=== PATIENT | male | born 1960 | race Caucasian/White ===

== ENCOUNTER 2025-02-20 16:39 | Emergency (ER) | payer OTHER, SELFPAY ==
[2025-02-20] VITALS (7 sets, daily range): BP systolic 160–190; BP diastolic 90–96; PULSE 75–82; RESP 16–25; TEMP 37.3; O2SAT 94–97; BMI 35.9
--- OUTSIDE RECORDS SUMMARY | 2025-02-20 16:42 | XMS_ITS | Encounter Summary ---
Author Organization [facility] Address [address] [place] [address] Care Team Providers Care Founder Ceo & President Name Role Phone Walter Ibarra MD Primary Care Provider [phone] Walter Ibarra MD Unavailable + Walter Ibarra MD Unavailable + Walter Ibarra MD Unavailable + Walter Ibarra MD Unavailable + Walter Ibarra MD Unavailable Chetan Judge DO Primary Care Provider Chetan Judge DO Unavailable Encounter Details Date Type Department Care Team (Late st Contact Info) Description 05/13/2018 MyC Medical Advice [facility] [address] [place] [phone] Tavia Perez APRN EMPLOYMENT CASE MANAGER [address] [place] [address] [address] [place] [address] Social History Tobacco Use Types Packs/Day Years Used Date Smoking Tobacco: Former Cigarettes Q uit: 08/21/2004 Smokeless Tobacco: Former Comments:light smoker in the past Alcohol Use Standard Drinks/Week Comments No 0 (1 standard drink = 0.6 oz pur e alcohol) quit six years ago Sex and Gender Information Value Date Recorded Sex Assigned at Male 06/22/2021 1:40 PM CDT 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 Gender Identity Male 06/22/2021 1:40 PM CDT Sexual Orientation Not on file Occupation Industry Job Start Date Job End Date Not on file Not on file Not on file Not on file documented as of this encounter Plan of Treatment Not on file documented as of this encounter Visit Diagnoses Not on filedocumented in this encounter Additional Health Concerns Assessment Noted Time PHQ-9 Depression Total Score: 1 05/14/20 18 7:01 AM CDT documented as of this encounter Care Teams Founder Ceo & President Relationship Specialty Start Date End Date Walter Ibarra MD PCP - General Family Practice 09/05/15 06/06/23 [place] [address] [address] [address] PCP - Assigned PCP 12/28/14 12/23/18 [place] [address] [address] [address] PCP - General Family Medicine 06/07/23 [place] [address] [address] [address] Assigned PCP 12/28/14 06/18/20 [place] [address] [address] [address] Assigned PCP 07/30/21 06/28/23 [place] [address] [address] [address] Assigned PCP 06/19/20 06/17/21 [place] [address] [address] [address] Assigned PCP 06/18/21 07/29/21 [place] [address] [place] [address] Assigned PCP 06/29/23 documented as of this encounter
--- OUTSIDE RECORDS SUMMARY | 2025-02-20 16:42 | XMS_ITS | Encounter Summary ---
Author Organization [facility] Address [address] [place] [address] Care Team Providers Care Car Dumper Operator Name Role Phone Chetan Judge DO Primary Care Provider [phone] Chetan Judge DO Unavailable Reason for Visit * Reason Onset Date Comments Refill Request 12/23/2023 escitalopram (LE XAPRO) 20 MG tabletatenolol (TENORMIN) 25 MG tablettraZODone (DESYREL) 50 MG tablet Encounter Details Date Type Department Care Team (Late st Contact Info) Description 12/23/2023 MyC Medical Advice [facility] [id number] [place] [address] [place] [id number] [place] [address] Refill Request (escitalopram (LEXAPRO) 20 ... 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 More than three times a week 10/03/2022 How often do you get togethe r with friends or relatives? More than three times a week 10/03/2022 How often do you attend chur or jain services? More than 4 times per year 10/03/2022 Do you belong to any clubs o r organizations such as spiritism groups, unions, fraternal or athletic groups, or school groups? Yes 10/03/2022 Attends Club or Organization Meetings Not on nupur e 10/03/2022 Are you , , di vorced, , never , or living with a partner? 10/03/2022 AUDIT-C Answer Date Recorded Q1: How often do you have a drink containing alcohol? 4 or more times a week 10/03/2022 Q2: How many drinks containi ng alcohol do you have on a typical day when you are drinking? 3 or 4 Q3: How often do you have si x or more drinks on one occasion? Monthly 10/03/2022 Overall Financial Resource Strain (CARDIA) Answe r Date Recorded How hard is it for you to pa y for the very basics like food, housing, medical care, and heating? Not hard at all 10/03/2022 PHQ-2 Answer Date Recorded PHQ-2 Score 0 02/07/2023 [facility] - Occupational Stress Questionnaire Answer Date Recorded Do you feel stress - tense, restless, nervous, or anxious, or unable to sleep at night because your mind is troubled all the time - these days? Only a little 10/03/2022 Exercise Vital Sign Answer Date Recorde d On average, how many days pe r week do you engage in moderate to strenuous exercise (like a brisk walk)? 0 days 10/03/2022 On average, how many minutes do you engage in exercise at this level? 0 min 10/03/2022 Hunger Vital Sign Answer Date Recorded Within the past 12 months, y ou worried that your food would run out before you got the money to buy more. Never true 10/03/20 22 Within the past 12 months, t he food you bought just didn't last and you didn't have money to get more. Never true 10/03/2022 PRAPARE - Transportation Answer Date Re corded In the past 12 months, has l ack of transportation kept you from medical appointments or from getting medications? No 09/20 In the past 12 months, has l ack of transportation kept you from meetings, work, or from getting things needed for daily living? No 10/03/2022 Housing Stability Vital Sign Answer Christian e Recorded In the last 12 months, was t here a time when you were not able to pay the mortgage or rent on time? No 10/03/2022 In the last 12 months, how many places have you lived? 1 10/03/2022 In the last 12 months, was t here a time when you did not have a steady place to sleep or slept in a intermediate (including now)? 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 Gender Identity Male 06/22/2021 1:40 PM CDT Sexual Orientation Not on file Occupation Industry Job Start Date Job End Date Not on file Not on file Not on file Not on file documented as of this encounter Plan of Treatment Not on file documented as of this encounter Visit Diagnoses Diagnosis Palpitations Hypertension goal BP (blood pressure) < 140/90 Unspecified essential hypertension Panic attacks Panic disorder without agoraphobia Generalized anxiety disorder documented in this encounter Additional Health Concerns Assessment Noted Time PHQ-9 Depression Total Score: 1 06/14/20 20 8:56 AM CDT documented as of this encounter Care Teams Car Dumper Operator Relationship Specialty [place] [address] [place] [address] PCP - General Family Medicine 06/07/23 [place] [address] [place] [address] Assigned PCP 06/29/23 documented as of this encounter
--- OUTSIDE RECORDS SUMMARY | 2025-02-20 16:42 | XMS_ITS ---
Author Organization [facility] Address [address] [place] [phone] Care Team Providers Care Hand Bookbinder Name Role Phone Gareth Rob D.D.S., KIM Unavailable [phone] Encounters Encounter Location Date Provider Diagnosis [address], [place] [address] 07/28/2024 ROSALINE BLANC Plan Of Treatment No Information Progress Notes * Adrian DE JESUSDOB:1960 (64 yo M)Acc No.[id number]:07/28/2024 Patient: Adrian ACOSTA Provider: Corinna Blanc D.D.S., M.S. :1960 A ge:63 Y S ex:Male Date:07/28/2024 [facility] [facility] Subjective: * Chief Complaints: * * Medical History: Objective: * Vitals: Assessment: Plan: * Treatment: * Billing Information: * Visit Code: * Procedure Codes: * Electronic signature of ROSALINE BLANC DDS on 02/20/2025 at 04:41 PM CDT Sign off status: Pending * Provider: Corinna Blanc D.D.S., M.S. Date: 1 Generated for Melanie hernandez/Neha/eTransmitting on: 0 02/20/2025 04:41 PM CDT
--- OUTSIDE RECORDS SUMMARY | 2025-02-20 16:42 | XMS_ITS | Encounter Summary ---
Author Organization [facility] Address [address] [place] [address] Care Team Providers Care Color Checker Roving Or Yarn Name Role Phone Walter Ibarra MD Primary Care Provider [phone] Walter Ibarra MD Unavailable Chetan Judge DO Primary Care Provider [phone] Chetan Judge DO Unavailable [phone] Encounter Details Date Type Department Care Team (Late st Contact Info) Description 01/07/2023 MyC Medical Advice [facility] [address] [place] [address] [place] [address] [place] [address] [place] [address] Social History Tobacco Use Types Packs/Day Years Used Date Smoking Tobacco: Some Days Cigarettes Last attempted to quit: 08/21/2004 Smokeless Tobacco: Current Comments:Rarely Chewing 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 More than 4 times per year 10/03/2022 Do you belong to any clubs o r organizations such as moravian groups, unions, fraternal or athletic groups, or [...] PHQ-2 Answer Date Recorded PHQ-2 Score 0 12/26/2021 [facility] - Occupational Stress Questionnaire Answer Date Recorded [...] place to sleep or slept in a skilled nursing (including now)? 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 No / Unsure 01/07/2023 11:50 AM CDT documented as of this encounter Plan of Treatment Not on file documented as of this encounter Visit Diagnoses Not on filedocumented in this encounter Additional Health Concerns Assessment Noted Time PHQ-9 Depression Total Score: 1 06/14/20 20 8:56 AM CDT documented as of this encounter Care Teams Color Checker Roving Or Yarn Relationship Specialty Start Date End Date Walter Ibarra MD PCP - General Family Practice 09/05/15 06/06/23 [place] [address] [place] [address] PCP - General Family Medicine 06/07/23 [place] [address] [place] [address] Assigned PCP 07/30/21 06/28/23 [place] [address] [place] [address] Assigned PCP 06/29/23 documented as of this encounter
--- OUTSIDE RECORDS SUMMARY | 2025-02-20 16:42 | XMS_ITS | Encounter Summary ---
Author Organization [facility] Address [address] [place] [address]. [place] [address] Care Team Providers Care Pet Crematory Worker Name Role Phone Chetan Judge DO Primary Care Provider Chetan Judge DO Unavailable [phone] Encounter Details Date Type Department Care Team (Late st Contact Info) Description 07/10/2024 MyC Medical Advice [facility] [address] [place] [address] [place] Judge [place] [id number] [place] [address] Social History Tobacco Use Types Packs/Day Years Used Date Smoking Tobacco: Former Cigarettes Q uit: 08/21/2004 Passive Smoke Exposure: Never Smokeless Tobacco: Current Comments:Rarely Chewing 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 More than 4 times per year 10/03/2022 Do you belong to any clubs o r organizations such as restorationism groups, unions, fraternal or athletic groups, or [...] PHQ-2 Answer Date Recorded PHQ-2 Score 0 02/14/2024 [facility] - Occupational Stress Questionnaire Answer Date Recorded [...] place to sleep or slept in a fpc (including now)? No 10/03/2022 Adolescent Education Answer Date Record ed Getting School Help Needed Not on file 08/04 Sex and Gender Information Value Date Recorded Sex Assigned at Male 06/22/2021 1:40 PM CDT Legal Sex Male 3:36 AM CONSTRUCTION OPERATIONS MANAGER Gender Identity Male 06/22/2021 1:40 PM [...] Assessment Noted Time PHQ-9 Depression Total Score: 0 02/14/20 24 4:15 PM CDT documented as of this encounter Care Teams Pet Crematory Worker Relationship Specialty [place] [address] [place] [address] PCP - General Family Medicine 06/07/23 [place] [address] [place] [address] Assigned PCP 06/29/23 documented as of this encounter
--- OUTSIDE RECORDS SUMMARY | 2025-02-20 16:42 | XMS_ITS | Encounter Summary ---
Author Organization [facility] Address [address] [place] [address]. [place] [address] Care Team Providers Care Assayer Name Role Phone Walter Ibarra MD Unavailable Chetan Judge DO Primary Care Provider [phone] Chetan Judge DO Unavailable [phone] Encounter Details Date Type Department Care Team (Late st Contact Info) Description 06/16/2023 MyC Medical Advice [facility] [address] [place] [phone] [place] [address] [place] [address] Social History Tobacco Use Types Packs/Day Years Used Date Smoking Tobacco: Former Cigarettes Q uit: 08/21/2004 Passive Smoke Exposure: Never Smokeless Tobacco: Current Comments:Rarely Chewing 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 More than 4 times per year [...] Answer Date Recorded PHQ-2 Score 0 02/07/2023 [facility] - Occupational Stress Questionnaire Answer Date Recorded [...] money to buy more. Never true 10/03/20 Within the past 12 months, t he [...] place to sleep or slept in a longterm (including now)? 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 No / Unsure 06/07/2023 1:32 PM CDT documented as of this encounter Plan of Treatment Not on file documented as of this encounter Visit Diagnoses Not on filedocumented in this encounter Additional Health Concerns Assessment Noted Time PHQ-9 Depression Total Score: 1 06/14/20 20 8:56 AM CDT documented as of this encounter Care Teams Assayer Relationship Specialty [place] [address] [place] [address] PCP - General Family Medicine 06/07/23 [place] [address] [place] [address] Assigned PCP 07/30/21 06/28/23 [place] [address] [place] [address] Assigned PCP 06/29/23 documented as of this encounter
--- OUTSIDE RECORDS SUMMARY | 2025-02-20 16:42 | XMS_ITS | Encounter Summary ---
Author Organization [facility] Address [address] [place] [address] Care Team Providers Care Steamer Blocker Name Role Phone Walter Ibarra MD Primary Care Provider [phone] Walter Ibarra MD Unavailable Walter Ibarra MD Unavailable Walter Ibarra MD Unavailable Chetan Judge DO Primary Care Provider [phone] Chetan Judge DO Unavailable [phone] Reason for Visit * Reason Onset Date Comments Appointment 06/16/2021 Pre-op Encounter Details Date Type Department Care Team (Late st Contact Info) Description 06/16/2021 MyC Medical Advice [address] [address] Christie Chamorro Appointment (Pre-op) Social History Tobacco Use Types Packs/Day Years Used Date Smoking Tobacco: Former Cigarettes Q uit: 08/21/2004 Smokeless Tobacco: Former Comments:light smoker in the past Alcohol Use Standard Drinks/Week Comments No 0 (1 standard drink = 0.6 oz pur e alcohol) quit six years ago PHQ-2 Answer Date Recorded PHQ-2 Score 0 06/14/2020 Sex and Gender Information Value Date Recorded Sex Assigned at Male 06/22/2021 1:40 PM CDT Legal Sex Male 3:36 AM LAB RN Gender Identity Male 06/22/2021 1:40 PM CDT [...] documented as of this encounter Care Teams Steamer Blocker Relationship Specialty Start Date End Date Walter Ibarra MD PCP - General Family Practice 09/05/15 06/06/23 [place] [address] [address] [address] PCP - General Family Medicine 06/07/23 [place] [address] [address] [address] Assigned PCP 07/30/21 06/28/23 [place] [address] [address] [address] Assigned PCP 06/19/20 06/17/21 [place] [address] [address] [address] Assigned PCP 06/18/21 07/29/21 [place] [address] [address] [address] Assigned PCP 06/29/23 documented as of this encounter
--- OUTSIDE RECORDS SUMMARY | 2025-02-20 16:42 | XMS_ITS | Encounter Summary ---
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 Gender Identity Male 06/22/2021 1:40 PM CDT [...] documented as of this encounter Care Teams Corporate Sales Trainer Relationship Specialty Start Date End Date Walter Ibarra MD PCP - General Family Practice 09/05/15 06/06/23 [place] [address] [place] [address] PCP - General Family Medicine 06/07/23 [place] [address] [address] [address] Assigned PCP 07/30/21 06/28/23 [place] [address] [address] [address] Assigned PCP 06/19/20 06/17/21 [place] [address] [address] [address] Assigned PCP 06/18/21 07/29/21 [place] [address] [address] [address] Assigned PCP 06/29/23 documented as of this encounter
--- OUTSIDE RECORDS SUMMARY | 2025-02-20 16:42 | XMS_ITS | Encounter Summary ---
Author Organization [facility] Address [address] [place] [address]. [place] [address] Care Team Providers Care Sales Representative Leather Goods Name Role Phone Walter Ibarra MD Primary Care Provider [phone] Walter Ibarra MD Unavailable Walter Ibarra MD Unavailable Walter Ibarra MD Unavailable Walter Ibarra MD Unavailable Chetan Judge DO Primary Care Provider [phone] Chetan Judge DO Unavailable [phone] Reason for Visit * Reason Onset Date Comments Medication Refill 04/01/2019 atenolol (TENO RMIN) 25 MG tablet Encounter Details Date Type Department Care Team (Late st Contact Info) Description 04/01/[address], [address] [place] [address] [place] [address] [place] [address] Medication Refill (atenolol (TENORMIN) 25 MG tablet) Social History Tobacco Use Types Packs/Day Years Used Date Smoking Tobacco: Former Cigarettes Q uit: 08/21/2004 Smokeless Tobacco: Former Comments:light smoker in the past Alcohol Use Standard Drinks/Week Comments No 0 (1 standard drink = 0.6 oz pur e alcohol) quit six years ago PHQ-2 Answer Date Recorded PHQ-2 Score 0 10/28/2018 Sex and Gender Information Value Date Recorded Sex Assigned at Male 06/22/2021 1:40 PM CDT Legal Sex Male 3:36 AM THERMO CEMENTING FOLDER OPERATOR Gender Identity Male 06/22/2021 1:40 PM CDT Sexual Orientation Not on file Occupation Industry Job Start Date Job End Date Not on file Not on file Not on file Not on file documented as of this encounter Miscellaneous Notes * Telephone Encounter - Sumaya Menard - 04/01/2019 11:46 AM CDT Images from the original note were not included. Requested Prescriptions Pending Prescriptions Disp Refills ??? atenolol (TENORMIN) 25 MG tablet [Pharmacy Med Name: ATENOLOL 25 MG TABLET] 180 tablet 1 Sig: TAKE 1 TABLET BY MOUTH TWICE A DAY Last Written Prescription Date: 11/17/18 Last Fill Quantity: 180, # refills: 1 Last Office Visit: 11/17/2018 Stacey Return in about 6 months (around 05/17/2019). Future Office Visit: Beta-Blockers Protocol Passed - 04/01/2019 11:41 AM Passed - Blood pressure under 140/90 in past 12 months BP Readings from Last 3 Encounters: 11/17/18 118/66 11/19/17 126/80 10/10/16 132/84 Passed - Patient is age 6 or older Passed - Recent (12 mo) or future (30 days) visit within the authorizing provider's specialty Patient had office visit in the last 12 months or has a visit in the next 30 days with authorizing provider or within the authorizing provider's specialty. See Patient Info tab in inbasket, or Choose Columns in Meds & Orders section of the refill encounter. Passed - Medication is active on med list documented in this encounter Plan of Treatment Not on file documented as of this encounter Visit Diagnoses Diagnosis Palpitations Hypertension goal BP (blood pressure) < 140/90 Unspecified essential hypertension documented in this encounter Additional Health Concerns Assessment Noted Time PHQ-9 Depression Total Score: 1 11/18/19 19 7:26 AM THERMO CEMENTING FOLDER OPERATOR documented as of this encounter Care Teams Sales Representative Leather Goods Relationship Specialty Start Date End Date Walter Ibarra MD PCP - General Family Practice 09/05/15 06/06/23 [place] [address] [place] [address] PCP - General Family Medicine 06/07/23 [place] [address] [address] [address] Assigned PCP 12/28/14 06/18/20 [place] [address] [place] [address] Assigned PCP 07/30/21 06/28/23 [place] [address] [address] [address] Assigned PCP 06/19/20 06/17/21 [place] [address] [address] [address] Assigned PCP 06/18/21 07/29/21 [place] [address] [place] [address] Assigned PCP 06/29/23 documented as of this encounter
--- OUTSIDE RECORDS SUMMARY | 2025-02-20 16:42 | XMS_ITS | Encounter Summary ---
Author Organization [facility] Address [address] [place] [address] Care Team Providers Care Operations Advisor Name Role Phone Walter Ibarra MD Primary Care Provider [phone] Waletr Ibarra MD Unavailable Walter Ibarra MD Unavailable + Walter Ibarra MD Unavailable + Walter Ibarra MD Unavailable + Walter Ibarra MD Unavailable Chetan Judge DO Primary Care Provider [phone] Chetan Judge DO Unavailable [phone] Encounter Details Date Type Department Care Team (Late st Contact Info) Description 10/05/[address] 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 Gender Identity Male 06/22/2021 1:40 PM CDT [...] Time PHQ-9 Depression Total Score: 0 02/14/20 16 7:15 AM CDT documented as of this encounter Care Teams Operations Advisor Relationship Specialty Start Date End Date Walter Ibarra MD PCP - General Family Practice 09/05/15 06/06/23 [place] [address] [address] [address] PCP - Assigned PCP 12/28/14 12/23/18 [place] [address] [address] [address] PCP - General Family Medicine 06/07/23 [place] [address] [address] [address] Assigned PCP 12/28/14 06/18/20 [place] [address] [address] [address] Assigned PCP 07/30/21 06/28/23 [place] [address] [place] [address] Assigned PCP 06/19/20 06/17/21 [place] [address] [address] [address] Assigned PCP 06/18/21 07/29/21 [place] [address] [place] [address] Assigned PCP 06/29/23 documented as of this encounter
--- OUTSIDE RECORDS SUMMARY | 2025-02-20 16:42 | XMS_ITS | Patient Health Record ---
Author Organization [facility] Address [facility] [address] [place] [address] Care Team Providers Care Safety Counselor Name Role Phone Gareth Rob D.D.S., KIM Unavailable [phone] Reason For Referral No Information Problems Problem Type SNOMED Code ICD Code Onset Dates Problem Status W/U Status Risk Notes Problem Chronic tension-type headache (070775700) Chronic tension-type headache, not intractable (G44.229) Active confirmed Problem Obstructive sleep apnea syndrome (disorder) (29572915) Obstructive sleep apnea (adult) (pediatric) (G47.33) Active confirmed Problem Cervicalgia (23112238) Cervicalgia (M54.2) Active confirmed Problem Enthesopathy (23843014) Other enthesopathies, 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) Active confirmed Problem Ankyloglossia (20447944) Ankyloglossia (Q38.1) Active confirmed Problem Arthralgia of temporomandibular joint (08061047) Arthralgia of right temporomandibular joint (M26.621) Active confirmed Problem Articular disc disorder of temporomandibular joint (35616392) 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) Active confirmed Problem Myalgia (37233614) Myalgia (M79.10) Active conf irmed Vital Signs Heart Rate 59 /min 03/17/2024 Blood pressure diastolic 78 mm Hg 03/17/2024 Weight-kg 111.13 kg 03/17/2024 Height 70 in 03/17/2024 Blood pressure systolic 131 mm Hg 03/17/2024 Weight 245 lbs 03/17/2024 BMI 35.15 kg/m2 03/17/2024 Encounters Encounter Location Date Provider Diagnosis [address] [address] 03/17/2024 ROSALINE HWANGERMANN Articular disc disor nadia of bilateral temporomandibular joint M26.633 ; Arthralgia of right temporomandibular joint M26.621 ; Myalgia M79.10 ; Chronic tension-type headache, not intractable G44.229 ; Cervicalgia M54.2 ; Other enthesopathies, not elsewhere classified M77.8 ; Ankyloglossia Q38.1 and Obstructive sleep apnea (adult) (pediatric) G47.[address] [address] 04/14/2024 ROSALINE LEDERMANN Articular disc disor nadia of bilateral temporomandibular joint M26.633 ; Arthralgia of right temporomandibular joint M26.621 ; Myalgia M79.10 ; Chronic tension-type headache, not intractable G44.229 ; Cervicalgia M54.2 ; Other enthesopathies, not elsewhere classified M77.8 ; Ankyloglossia Q38.1 and Obstructive sleep apnea (adult) (pediatric) G47.[address] [address] 05/04/2024 ROSALINE BAIRD Articular disc disor nadia of bilateral temporomandibular joint M26.633 ; Arthralgia of right temporomandibular joint M26.621 ; Chronic tension-type headache, not intractable G44.229 ; Cervicalgia M54.2 and Myalgia M79.[address] [address] 06/02/2024 ROSALINE LEDERMANN Articular disc disor nadia of bilateral temporomandibular joint M26.633 ; Arthralgia of right temporomandibular joint M26.621 ; Chronic tension-type headache, not intractable G44.229 ; Cervicalgia M54.2 and Myalgia M79.[address] [address] 06/30/2024 ROSALINE HWANGERMANN Articular disc disor nadia of bilateral temporomandibular joint M26.633 ; Arthralgia of right temporomandibular joint M26.621 ; Chronic tension-type headache, not intractable G44.229 ; Cervicalgia M54.2 and Myalgia M79.10 Assessments Encounter Date Diagnosis (ICD Code) Assessment Notes Treatment Notes Treatment Clinical Notes Section Notes 03/17/2024 Arthralgia of right temporomandibular joint (ICD-10 - M26.621) Patient is affec clark by temporomandibular dysfunction consisting of intermittent bilateral TMJ disc displacement with reduction and minor rightt TMJ arthralgia. He has associated myalgia, cephalgia, and aggravation of his cervicalgia . Oral restricitons are present. Sleep apnea is present and treated with CPAP. 03/17/2024 Articular disc disorder of bilateral temporomandibular joint (ICD-10 - M26.633) Patient is affec clark by temporomandibular dysfunction consisting of intermittent bilateral TMJ disc displacement with reduction and minor rightt TMJ arthralgia. He has associated myalgia, cephalgia, and aggravation of his cervicalgia . Oral restricitons are present. Sleep apnea is present and treated with CPAP. 04/14/2024 Arthralgia of right temporomandibular joint (ICD-10 - M26.621) 04/14/2024 Articular disc disorder of bilateral temporomandibular joint (ICD-10 - M26.633) 05/04/2024 Articular disc disorder of bilateral temporomandibular joint (ICD-10 - M26.633) Symptoms slowly improving. PBM indicated 06/02/2024 Articular disc disorder of bilateral temporomandibular joint (ICD-10 - M26.633) Condtion slowly improving 06/30/2024 Articular disc disorder of bilateral temporomandibular joint (ICD-10 - M26.633) Minor myalgia/tension persists 06/30/2024 Arthralgia of right temporomandibular joint (ICD-10 - M26.621) Minor myalgia/tension persists 05/04/2024 Arthralgia of right temporomandibular joint (ICD-10 - M26.621) Symptoms slowly improving. PBM indicated 06/02/2024 Arthralgia of right temporomandibular joint (ICD-10 - M26.621) Condtion slowly improving 04/14/2024 Myalgia (ICD-10 - M79.10) 03/17/2024 Myalgia (ICD-10 - M79.10) Patient is affec clark by temporomandibular dysfunction consisting of intermittent bilateral TMJ disc displacement with reduction and minor rightt TMJ arthralgia. He has associated myalgia, cephalgia, and aggravation of his cervicalgia . Oral restricitons are present. Sleep apnea is present and treated with CPAP. 04/14/2024 Chronic tension-type headache, not intractable (ICD-10 - G44.229) 03/17/2024 Chronic tension-type headache, not intractable (ICD-10 - G44.229) Patient is affec clark by temporomandibular dysfunction consisting of intermittent bilateral TMJ disc displacement with reduction and minor rightt TMJ arthralgia. He has associated myalgia, cephalgia, and aggravation of his cervicalgia . Oral restricitons are present. Sleep apnea is present and treated with CPAP. 05/04/2024 Chronic tension-type headache, not intractable (ICD-10 - G44.229) Symptoms slowly improving. PBM indicated 06/02/2024 Chronic tension-type headache, not intractable (ICD-10 - G44.229) Condtion slowly improving 06/30/2024 Chronic tension-type headache, not intractable (ICD-10 - G44.229) Minor myalgia/tension persists 06/30/2024 Cervicalgia (ICD-10 - M54.2) Minor myalgia/tension persists 06/02/2024 Cervicalgia (ICD-10 - M54.2) Condtion slowly improving 05/04/2024 Cervicalgia (ICD-10 - M54.2) Symptoms slowly improving. PBM indicated 04/14/2024 Cervicalgia (ICD-10 - M54.2) 03/17/2024 Cervicalgia (ICD-10 - M54.2) Patient is affec clark by temporomandibular dysfunction consisting of intermittent bilateral TMJ disc displacement with reduction and minor rightt TMJ arthralgia. He has associated myalgia, cephalgia, and aggravation of his cervicalgia . Oral restricitons are present. Sleep apnea is present and treated with CPAP. 03/17/2024 Other enthesopathies, not elsewhere classified (ICD-10 - M77.8) Patient is affe cted by temporomandibular dysfunction consisting of intermittent bilateral TMJ disc displacement with reduction and minor rightt TMJ arthralgia. He has associated myalgia, cephalgia, and aggravation of his cervicalgia . Oral restricitons are present. Sleep apnea is present and treated with CPAP. 04/14/2024 Other enthesopathies, not elsewhere classified (ICD-10 - M77.8) 05/04/2024 Myalgia (ICD-10 - M79.10) Symptoms slowly improving. PBM indicated 06/02/2024 Myalgia (ICD-10 - M79.10) Condtion slowly improving 06/30/2024 Myalgia (ICD-10 - M79.10) Minor myalgia/tension persists 04/14/2024 Ankyloglossia (ICD-10 - Q38.1) 03/17/2024 Ankyloglossia (ICD-10 - Q38.1) Patient is affe cted by temporomandibular dysfunction consisting of intermittent bilateral TMJ disc displacement with reduction and minor rightt TMJ arthralgia. He has associated myalgia, cephalgia, and aggravation of his cervicalgia . Oral restricitons are present. Sleep apnea is present and treated with CPAP. 03/17/2024 Obstructive sleep apnea (adult) (pediatric) (ICD-10 - G47.33) Patient is affec clark by temporomandibular dysfunction consisting of intermittent bilateral TMJ disc displacement with reduction and minor rightt TMJ arthralgia. He has associated myalgia, cephalgia, and aggravation of his cervicalgia . Oral restricitons are present. Sleep apnea is present and treated with CPAP. 04/14/2024 Obstructive sleep apnea (adult) (pediatric) (ICD-10 - G47.33) Plan Of Treatment No Information Insurance Providers Payer Name Payer Address Payer Phone Subscriber Number Group Number Insured Name Patient Relationship to Insured Coverage Start Date Coverage End Date [employer] [address] [address] [place] [address] [id number] Adrian Duggan Self - patient is the insured Medical (General) History Medical History History ICD Code Arthritis
--- OUTSIDE RECORDS SUMMARY | 2025-02-20 16:42 | XMS_ITS | Encounter Summary ---
Author Organization [facility] Address [address] [place] [address]. [place] [address] Care Team Providers Care Computer Information Science Professor Name Role Phone Walter Ibarra MD Primary Care Provider [phone] Walter Ibarra MD Unavailable Walter Ibarra MD Unavailable Walter Ibarra MD Unavailable Walter Ibarra MD Unavailable Chetan Judge DO Primary Care Provider [phone] Chetan Judge DO Unavailable [phone] Reason for Visit * Reason Onset Date Comments Refill Request 06/01/2020 Atenolol, Lexapr o Encounter Details Date Type Department Care Team (Late st Contact Info) Description 06/01/2020 MyC Refill M [address], [address] [place] [address] [place] [address] [place] [address] Refill Request (Atenolol, Lexapro) Social History Tobacco Use Types Packs/Day Years [...] PM CDT 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 Please call to schedule. ?? Walter Ibarra MD ?? Fair Observerhart message sent to patient. Virgen Lu RN documented in this encounter Plan of Treatment Not on file documented as of this encounter Visit Diagnoses Diagnosis Palpitations Hypertension goal BP (blood pressure) < 140/90 Unspecified essential hypertension Panic attacks Panic disorder without agoraphobia Generalized anxiety disorder documented in this encounter Additional Health Concerns Assessment Noted Time PHQ-9 Depression Total Score: 2 06/03/20 19 7:03 AM CDT documented as of this encounter Care Teams Computer Information Science Professor Relationship Specialty Start Date End Date Walter Ibarra MD PCP - General Family Practice 09/05/15 06/06/23 [place] [address] [place] [address] PCP - General Family Medicine 06/07/23 [place] [address] [place] [address] Assigned PCP 12/28/14 06/18/20 [place] [address] [address] [place] [address] Assigned PCP 07/30/21 06/28/23 [place] [address] [address] INDERJITAlma Delia [place] [address] Assigned PCP 06/19/20 06/17/21 [place] [address] [address] INDERJITAlma Delia [address] [place] [address] Assigned PCP 06/18/21 07/29/21 [place] [address] [address] [address] Assigned PCP 06/29/23 documented as of this encounter
--- OUTSIDE RECORDS SUMMARY | 2025-02-20 16:42 | XMS_ITS | Encounter Summary ---
Author Organization [facility] Address [address] [place] [address]. [place] [address] Care Team Providers Care Process Improvement Specialist Name Role Phone Walter Ibarra MD Primary Care Provider [phone] Walter Ibarra MD Unavailable Walter Ibarra MD Unavailable Walter Ibarra MD Unavailable Chetan Judge DO Primary Care Provider [phone] Chetan Judge DO Unavailable [phone] Reason for Visit * Reason Comments Medication Refill Encounter Details Date Type Department Care Team (Late st Contact Info) Description 06/24/[address], [address] [place] [address] [place] [address] [place], [place] [id number] Medication Refill Social History Tobacco Use Types Packs/Day Years [...] PM CDT 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 Elzbieta Cordova RN [facility] -- Triage Nurse documented in this encounter Plan of Treatment Not on file documented as of this encounter Visit Diagnoses Diagnosis Palpitations Hypertension goal BP (blood pressure) < 140/90 Unspecified essential hypertension documented in this encounter Additional Health Concerns Assessment Noted Time PHQ-9 Depression Total Score: 1 06/14/20 20 8:56 AM CDT documented as of this encounter Care Teams Process Improvement Specialist Relationship Specialty Start Date End Date Walter Ibarra MD PCP - General Family Practice 09/05/15 06/06/23 [place] [address] [place] [address] PCP - General Family Medicine 06/07/23 [place] [address] [address] [address] Assigned PCP 07/30/21 06/28/23 [place] [address] [address] [address] Assigned PCP 06/19/20 06/17/21 [place] [address] [address] [address] Assigned PCP 06/18/21 07/29/21 [place] [address] [place] [address] Assigned PCP 06/29/23 documented as of this encounter
--- OUTSIDE RECORDS SUMMARY | 2025-02-20 16:42 | XMS_ITS | Encounter Summary ---
Author Organization [facility] Address [address] [place] [address]. [place] [address] Care Team Providers Care Correctional Food Service Supervisor Name Role Phone Walter Ibarra MD Primary Care Provider [phone] Walter Ibarra MD Unavailable Walter Ibarra MD Unavailable Walter Ibarra MD Unavailable Walter Ibarra MD Unavailable Chetan Judge DO Primary Care Provider [phone] Chetan Judge DO Unavailable [phone] Encounter Details Date Type Department Care Team (Late st Contact Info) Description 05/23/2020 MyC Medical Advice [address], [address] [place] [address] [place] [address] [place] [address] Social History Tobacco Use Types Packs/Day Years [...] PM CDT 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 Gender Identity Male 06/22/2021 1:40 PM CDT [...] documented as of this encounter Care Teams Correctional Food Service Supervisor Relationship Specialty Start Date End Date Walter Ibarra MD PCP - General Family Practice 09/05/15 06/06/23 [place] [address] [address] [address] PCP - General Family Medicine 06/07/23 [place] [address] [address] [address] Assigned PCP 12/28/14 06/18/20 [place] [address] [address] [address] Assigned PCP 07/30/21 06/28/23 [place] [address] [address] [address] Assigned PCP 06/19/20 06/17/21 [place] [address] [address] [address] Assigned PCP 06/18/21 07/29/21 [place] [address] [address] [address] Assigned PCP 06/29/23 documented as of this encounter
--- OUTSIDE RECORDS SUMMARY | 2025-02-20 16:42 | XMS_ITS | Encounter Summary ---
Author Organization [facility] Address [address] [place] [address]. [place] [address] Care Team Providers Care Director Food And Beverage Name Role Phone Walter Ibarra MD Primary Care Provider [phone] Walter Ibarra MD Unavailable Walter Ibarra MD Unavailable Walter Ibarra MD Unavailable Walter Ibarra MD Unavailable Walter Ibarra MD Unavailable Chetan Judge DO Primary Care Provider [phone] Chetan Judge DO Unavailable Reason for Visit * Reason Onset Date Comments Medication Request 10/09/2018 Trazodone Encounter Details Date Type Department Care Team (Late st Contact Info) Description 10/09/2018 MyC Medical Advice [address], [address] [place] [address] [place] [address] [place] [address] Medication Request (Trazodone) Social History Tobacco Use Types Packs/Day Years [...] PM CDT 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 Gender Identity Male 06/22/2021 1:40 PM CDT [...] documented as of this encounter Care Teams Director Food And Beverage Relationship Specialty Start Date End Date Walter Ibarra MD PCP - General Family Practice 09/05/15 06/06/23 [place] [address] [address] [address] PCP - Assigned PCP 12/28/14 12/23/18 [place] [address] [address] [address] PCP - General Family Medicine 06/07/23 [place] [address] [address] [address] Assigned PCP 12/28/14 06/18/20 [place] [address] [address] [address] Assigned PCP 07/30/21 06/28/23 [place] [address] [address] [address] Assigned PCP 06/19/20 06/17/21 [place] [address] [place] [address] Assigned PCP 06/18/21 07/29/21 [place] [address] [address] [facility] [address] Assigned PCP 06/29/23 documented as of this encounter
--- OUTSIDE RECORDS SUMMARY | 2025-02-20 16:42 | XMS_ITS | Encounter Summary ---
Author Organization [facility] Address [address] [place] [address]. [place] [address] Care Team Providers Care Electronic Wirer Name Role Phone Walter Ibarra MD Unavailable Chetan Judge DO Primary Care Provider Chetan Judge DO Unavailable [phone] Encounter Details Date Type Department Care Team (Late st Contact Info) Description 06/09/2023 MyC Medical Advice [facility] [address] [place] [address] [place] [id number] [place] [address] Social History Tobacco Use Types Packs/Day Years Used Date Smoking Tobacco: Former Cigarettes Q uit: 08/21/2004 Passive Smoke Exposure: Never Smokeless Tobacco: Current Comments:Rarely 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 More than 4 times per year 10/03/2022 Do you belong to any clubs o r organizations such as samaritan groups, unions, fraternal or athletic groups, or [...] Answer Date Recorded PHQ-2 Score 0 02/07/2023 [facility] - Occupational Stress Questionnaire Answer Date [...] place to sleep or slept in a long term (including now)? 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
--- OUTSIDE RECORDS SUMMARY | 2025-02-20 16:42 | XMS_ITS | Encounter Summary ---
Author Organization [facility] Address [address] [place] [address]. [place] [address] Care Team Providers Care Vascular Surgeon Name Role Phone Chetan Judge DO Primary Care Provider [phone] Chetan Judge DO Unavailable [phone] Encounter Details Date Type Department Care Team (Late st Contact Info) Description 08/03/2024 [facility] Medical Advice [facility] [address] [place] [address] [place] [address] [place] [address] Social History Tobacco Use Types Packs/Day Years Used Date Smoking Tobacco: Former Cigarettes Q uit: 08/21/2004 Passive Smoke Exposure: Never Smokeless Tobacco: Current Comments:Rarely Chewing toba account financial manager Alcohol Use Standard Drinks/Week Comments Yes [...] often do you attend chur ch or taoism services? More than 4 times per year 10/03/2022 Do you belong to any clubs o r organizations such as yazdanism groups, unions, fraternal or athletic groups, or [...] Answer Date Recorded PHQ-2 Score 0 02/14/2024 [facility] - Occupational Stress Questionnaire Answer Date [...] a long term (including now)? 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
--- OUTSIDE RECORDS SUMMARY | 2025-02-20 16:42 | XMS_ITS | Encounter Summary ---
Author Organization [facility] Address [address] [place] [address]. [place] [address] Care Team Providers Care Pharmaceutical Assistant Name Role Phone Walter Ibarra MD Primary Care Provider [phone] Walter Ibarra MD Unavailable Walter Ibarra MD Unavailable Walter Ibarra MD Unavailable Walter Ibarra MD Unavailable Walter Ibarra MD Unavailable Chetan Judge DO Primary Care Provider [phone] Chetan Judge DO Unavailable [phone] Reason for Visit * Reason Onset Date Comments Refill Request 05/23/2017 Lexapro 20mg Encounter Details Date Type Department Care Team (Late st Contact Info) Description 05/23/2017 MyC Refill [address], [address] [place] [address] [place] [address] [place] [address] Refill Request (Lexapro 20mg) Social History Tobacco Use Types Packs/Day Years [...] PM CDT 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, [facility] or [facility] prescribing provider: 10/10/2016 Medication is being filled for 1 time refill only due to: Patient needs to be seen because advised to be seen for follow up in 6 months from last office visit on 10/10/2016. Letter sent to patient. Virgen Lu RN * Telephone Encounter - Virgen Lu RN - 05/23/2017 4:29 PM CDTMessage from [place]: Original authorizing provider: MD Adrian Garrett would like a refill of the following medications: escitalopram (LEXAPRO) 20 MG tablet [Walter Ibarra MD] Preferred pharmacy: [id number] [address] [facility] Comment: documented in this encounter Plan of Treatment Not on file documented as of this encounter Visit Diagnoses Diagnosis Panic attacks Panic disorder without agoraphobia Generalized anxiety disorder documented in this encounter Additional Health Concerns Assessment Noted Time PHQ-9 Depression Total Score: 0 02/14/20 16 7:15 AM CDT documented as of this encounter Care Teams Pharmaceutical Assistant Relationship Specialty Start Date End Date Walter Ibarra MD PCP - General Family Practice 09/05/15 06/06/23 [place] [address] [place] [address] PCP - Assigned PCP 12/28/14 12/23/18 [place] [address] [place] [address] PCP - General Family Medicine 06/07/23 [place] [address] [place] [address] Assigned PCP 12/28/14 06/18/20 [place] [address] [place] [address] Assigned PCP 07/30/21 06/28/23 [place] [address] [place] [address] Assigned PCP 06/19/20 06/17/21 [place] [address] [place] [address] Assigned PCP 06/18/21 07/29/21 [place] [address] [place] [address] Assigned PCP 06/29/23 documented as of this encounter
--- OUTSIDE RECORDS SUMMARY | 2025-02-20 16:43 | XMS_ITS | Encounter Summary ---
Author Organization [facility] Address [address] [place] [address]. [place] [address] Care Team Providers Care Structural Steel Worker Apprentice Name Role Phone Walter Ibarra MD Primary Care Provider Walter Ibarra MD Unavailable Chetan Judge DO Primary Care Provider [phone] Chetan Judge DO Unavailable [phone] Reason for Visit * Reason Onset Date Comments Refill Request 06/21/2022 Encounter Details Date Type Department Care Team (Late st Contact Info) Description 06/21/2022 MyC Refill [address] [address] [place] [address] [place] [address] Refill Request Social History Tobacco Use Types Packs/Day Years Used Date Smoking Tobacco: Former Cigarettes Q uit: 08/21/2004 Smokeless Tobacco: Current Comments:Rarely Chewing toba tobacco packer Alcohol Use Standard Drinks/Week Comments Yes 0 (1 standard drink = 0.6 oz pur e alcohol) 12 drinks weekly PHQ-2 Answer Date Recorded PHQ-2 Score 0 12/26/2021 Sex and Gender Information Value Date Recorded Sex Assigned at Male 06/22/2021 1:40 PM CDT 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 Please contact patient and let him know he is due for virtual follow up/med check with Dr. Ibarra and help schedule * Telephone Encounter - Yadi Fairchild RN - 06/22/2022 11:59 AM CDT Routing refill request to provider for review/approval because: Drug not on the [facility] refill protocol Yadi Fairchild RN, BSN [facility] documented in this encounter Plan of Treatment Not on file documented as of this encounter Visit Diagnoses Diagnosis Panic attacks Panic disorder without agoraphobia Generalized anxiety disorder documented in this encounter Additional Health Concerns Assessment Noted Time PHQ-9 Depression Total Score: 1 06/14/20 20 8:56 AM CDT documented as of this encounter Care Teams Structural Steel Worker Apprentice Relationship Specialty Start Date End Date Walter Ibarra MD PCP - General Family Practice 09/05/15 06/06/23 [place] [address] [place] [address] PCP - General Family Medicine 06/07/23 [place] [address] [place] [address] Assigned PCP 07/30/21 06/28/23 [place] [address] [place] [address] Assigned PCP 06/29/23 documented as of this encounter
--- OUTSIDE RECORDS SUMMARY | 2025-02-20 16:43 | XMS_ITS | Encounter Summary ---
Author Organization [facility] Address [address] [place] [address] Care Team Providers Care Microbiology Technologist Name Role Phone Walter Ibarra MD Primary Care Provider [phone] Walter Ibarra MD Unavailable Walter Ibarra MD Unavailable + Walter Ibarra MD Unavailable + Walter Ibarra MD Unavailable + Walter Ibarra MD Unavailable Chetan Judge DO Primary Care Provider [phone] Chetan Judge DO Unavailable [phone] Encounter Details Date Type Department Care Team (Late st Contact Info) Description 01/31/2016 MyC Medical Advice [address], [address] [place] [address] Sarah De Santiago RN Social History Tobacco Use Types Packs/Day [...] PM CDT 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 Gender Identity Male 06/22/2021 1:40 PM CDT [...] Noted Time PHQ-9 Depression Total Score: 1 07/13/20 15 7:21 AM CDT documented as of this encounter Care Teams Microbiology Technologist Relationship Specialty Start Date End Date Walter Ibarra MD PCP - General Family Practice 09/05/15 06/06/23 [place] [address] [address] [address] PCP - Assigned PCP 12/28/14 12/23/18 [place] [address] [place] [address] PCP - General Family Medicine 06/07/23 [place] [address] [address] [address] Assigned PCP 12/28/14 06/18/20 [place] [address] [address] [place] [address] Assigned PCP 07/30/21 06/28/23 [place] [address] [address] [place] [address] Assigned PCP 06/19/20 06/17/21 [place] [address] [address] [place] [address] Assigned PCP 06/18/21 07/29/21 [place] [address] [place] [address] Assigned PCP 06/29/23 documented as of this encounter
--- OUTSIDE RECORDS SUMMARY | 2025-02-20 16:43 | XMS_ITS | Encounter Summary ---
Author Organization [facility] Address [address] [place] [address] Care Team Providers Care Childcare Center Director Name Role Phone Evan eHck MD Primary Care Provider None Primary Care Provider Unavailabl e Walter Ibarra MD Primary Care Provider [phone] Walter Ibarra MD Unavailable Walter Ibarra MD Unavailable Walter Ibarra MD Unavailable Walter Ibarra MD Unavailable Walter Ibarra MD Unavailable Chetan Judge DO Primary Care Provider [phone] Chetan Judge DO Unavailable [phone] Reason for Visit * Reason Onset Date Comments Nurse Advice Line 12/03/2014 med refill Encounter Details Date Type Department Care Team (Late st Contact Info) Description 12/03/2014 Telephone [facility] [address] [place] [address] Evan Heck MD [address] [place] [address] Nurse Advice Line (med refill) Social History Tobacco Use Types Packs/Day Years Used Date Smoking Tobacco: Former Cigarettes Q uit: 08/21/2004 Smokeless Tobacco: Former Comments:light smoker in the past Alcohol Use Standard Drinks/Week Comments No 0 (1 standard drink = 0.6 oz pur e alcohol) quit six years ago Social Connection and Isolat ion Panel [NHANES] Answer Date Recorded In a typical week, how many times do you talk on the phone with family, friends, or neighbors? More than three times a week 10/03/2022 How often do you get togethe r with friends or relatives? More than three times a week 10/03/2022 How often do you attend chur or zoroastrianism services? More than 4 times per year 10/03/2022 Do you belong to any clubs o r organizations such as taoist groups, unions, fraternal or athletic groups, or [...] Answer Date Recorded PHQ-2 Score 0 02/14/2024 [facility] - Occupational Stress Questionnaire Answer Date [...] place to sleep or slept in a long-term (including now)? No 10/03/2022 Adolescent Education Answer Date Record ed Getting School Help Needed Not on file 08/04 Interpersonal Safety Answer Date Record ed Do you feel physically and e motionally safe where you currently live? Yes 08/26/2024 Within the past 12 months, h ave you been hit, slapped, kicked or otherwise physically hurt by someone? No 08/26/2024 Within the past 12 months, h ave you been humiliated or emotionally abused in other ways by your partner or ex-partner? 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 Per [facility] refill protocol, re filled for 1 month. Advised patient to call clinic on Saturday to set up an appt. to be seen for anxiety follow up as he is due for one now. He agreed. Routed to: Dr. Heck P 94105 Ami Conte RN, [facility] OUND SALES ADVISOR documented in this encounter Plan of Treatment Not on file documented as of this encounter Visit Diagnoses Diagnosis Generalised anxiety disorder- Primary Generalized anxiety disorder Panic attacks Panic disorder without agoraphobia documented in this encounter Care Teams Childcare Center Director Relationship Specialty Start Date End Date Evan Heck MD PCP - General 12/05/01 12/05/14 None PCP - General 12/06/14 09/04/15 Walter Ibarra MD PCP - General Family Practice 09/05/15 06/06/23 [place] [address] [address] [place] [address] PCP - Assigned PCP 12/28/14 12/23/18 [place] [address] [place] [address] PCP - General Family Medicine 06/07/23 [place] [address] [address] [place] [address] Assigned PCP 12/28/14 06/18/20 [place] [address] [address] [place] [address] Assigned PCP 07/30/21 06/28/23 [place] [address] [address] [place] [address] Assigned PCP 06/19/20 06/17/21 [place] [address] [address] INDERJITAlma Delia [address] [place] [address] Assigned PCP 06/18/21 07/29/21 [place] [address] [place] [address] Assigned PCP 06/29/23 documented as of this encounter
--- OUTSIDE RECORDS SUMMARY | 2025-02-20 16:43 | XMS_ITS | Encounter Summary ---
Author Organization [facility] Address [address] [place] [address] Care Team Providers Care Deliver Driver Name Role Phone Evan Heck MD Primary Care Provider None Primary Care Provider Unavailabl e Walter Ibarra MD Primary Care Provider [phone] Walter Ibarra MD Unavailable Walter Ibarra MD Unavailable Walter Ibarra MD Unavailable Walter Ibarra MD Unavailable Walter Ibarar MD Unavailable Chetan Judge DO Primary Care Provider [phone] Chetan Judge DO Unavailable [phone] Reason for Visit * Reason Onset Date Comments MyChart Communication 01/10/2012 celexa Encounter Details Date Type Department Care Team (Latest Contact Info) Description 01/10/2012 MyC Medical Advice [facility] [address] [place] [address] Evan Heck MD [address] [place] [phone] MyChart Communication (celexa) Social History Tobacco Use Types Packs/Day Years [...] PM CDT 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 Gender Identity Male 06/22/2021 1:40 PM CDT Sexual Orientation Not on file Occupation Industry Job Start Date Job End Date Not on file Not on file Not on file Not on file documented as of this encounter Plan of Treatment Not on file documented as of this encounter Visit Diagnoses Not on filedocumented in this encounter Care Teams Deliver Driver Relationship Specialty Start Date End Date Evan Heck MD PCP - General 12/05/01 12/05/14 None PCP - General 12/06/14 09/04/15 Walter Ibarra MD PCP - General Family Practice 09/05/15 06/06/23 [place] [address] [address] [address] PCP - Assigned PCP 12/28/14 12/23/18 [place] [address] [place] [address] PCP - General Family Medicine 06/07/23 [place] [address] [address] [address] Assigned PCP 12/28/14 06/18/20 [place] [address] [address] [place] [address] Assigned PCP 07/30/21 06/28/23 [place] [address] [address] [address] Assigned PCP 06/19/20 06/17/21 [place] [address] [address] [address] Assigned PCP 06/18/21 07/29/21 [place] [address] [address] [place] [address] Assigned PCP 06/29/23 documented as of this encounter
--- OUTSIDE RECORDS SUMMARY | 2025-02-20 16:43 | XMS_ITS | Encounter Summary ---
Author Organization [facility] Address [address] [place] [address] Care Team Providers Care Vice President Sales Name Role Phone Walter Ibarra MD Primary Care Provider [phone] Walter Ibarra MD Unavailable Chetan Judge DO Primary Care Provider [phone] Chetan Judge DO Unavailable [phone] Encounter Details Date Type Department Care Team (Late st Contact Info) Description 10/31/2021 MyC Medical Advice [address] [address] Melva Quach Social History Tobacco Use Types Packs/Day Years Used Date Smoking Tobacco: Former Cigarettes Q uit: 08/21/2004 Smokeless Tobacco: Former Comments:light smoker in the past Alcohol Use Standard Drinks/Week Comments Yes 0 (1 standard drink = 0.6 oz pur e alcohol) 12 drinks weekly PHQ-2 Answer Date Recorded PHQ-2 Score 0 07/17/2021 Sex and Gender Information Value Date Recorded Sex Assigned at Male 06/22/2021 1:40 PM CDT 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
--- OUTSIDE RECORDS SUMMARY | 2025-02-20 16:43 | XMS_ITS | Encounter Summary ---
Author Organization [facility] Address [address] [place] [address] Care Team Providers Care Partition Assembly Machine Operator Name Role Phone Evan Heck MD Primary Care Provider None Primary Care Provider Unavailabl e Walter Ibarra MD Primary Care Provider [phone] Walter Ibarra MD Unavailable Walter Ibarra MD Unavailable Walter Ibarra MD Unavailable Walter Ibarra MD Unavailable Walter Ibarra MD Unavailable Chetan Judge DO Primary Care Provider [phone] Chetan Judge DO Unavailable [phone] Reason for Visit * Reason Onset Date Comments MyChart Communication 11/09/2011 Encounter Details Date Type Department Care Team (Latest Contact Info) Description 11/09/2011 MyC Medical Advice [facility] [id number] [place] [address] Evan Heck MD [address] [place] [phone] MyChart Communication Social History Tobacco Use Types Packs/Day Years [...] PM CDT 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 Gender Identity Male 06/22/2021 1:40 PM CDT Sexual Orientation Not on file Occupation Industry Job Start Date Job End Date Not on file Not on file Not on file Not on file documented as of this encounter Plan of Treatment Not on file documented as of this encounter Visit Diagnoses Not on filedocumented in this encounter Care Teams Partition Assembly Machine Operator Relationship Specialty Start Date End Date Evan Heck MD PCP - General 12/05/01 12/05/14 None PCP - General 12/06/14 09/04/15 Walter Ibarra MD PCP - General Family Practice 09/05/15 06/06/23 [place] [address] [address] [address] PCP - Assigned PCP 12/28/14 12/23/18 [place] [address] [address] [place] [address] PCP - General Family Medicine 06/07/23 [place] [address] [address] [place] [address] Assigned PCP 12/28/14 06/18/20 [place] [address] [address] [place] [address] Assigned PCP 07/30/21 06/28/23 [place] [address] [address] [address] Assigned PCP 06/19/20 06/17/21 [place] [address] [address] [address] Assigned PCP 06/18/21 07/29/21 [place] [address] [place] [address] Assigned PCP 06/29/23 documented as of this encounter
--- OUTSIDE RECORDS SUMMARY | 2025-02-20 16:43 | XMS_ITS | Encounter Summary ---
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
--- OUTSIDE RECORDS SUMMARY | 2025-02-20 16:43 | XMS_ITS ---
Author Organization [facility] Address [address] [place] [id number] Care Team Providers Care Meat Washer Name Role Phone Gareth Rob D.D.S., KIM Unavailable [phone] REASON FOR VISIT Bite feels off with no comfortable resting spot, Jaw gets sore every afternoon, Headaches at temples, Clenching during the day. 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 (ICD-10 - M26.633) Condtion slowly improving 06/02/2024 Arthralgia of right temporomandibular joint (ICD-10 - M26.621) Condtion slowly improving 06/02/2024 Chronic tension-type headache, not intractable (ICD-10 - G44.229) Condtion slowly improving 06/02/2024 Cervicalgia (ICD-10 - M54.2) Condtion slowly improving 06/02/2024 Myalgia (ICD-10 - M79.10) Condtion slowly improving Plan Of Treatment Next Appt Details Follow Up: 4 Weeks, Reason: GIRMA recheck Procedure Notes * Category Sub-Category Detail Notes Recommended Consultations Recommended consultati on(s) Physical therapist, Ketty Lopez at [facility] Appliance Adjustments Appliance adjustments yohana nced the occlusion of the orthosis Appliance Recommendations Recommended ap pliance wear as follows GIRMA, director multimedia Exercises Exercise Recommendations begin Stephan daniels Providers Seen By Ramya Blanc D.D.S., M.S. Dental Rehabilitation Program Coordinator CHLOÉ Mayorga Progress Notes * Adrian DE JESUSDOB:1960 (63 yo M)Acc No.[id number]:06/02/2024 Patient: Adrian ACOSTA Provider: Corinna Blanc D.D.S., M.S. :1960 A ge:63 Y S ex:Male Date:06/02/2024 Address:[address] [place], [id number] Subjective: * Chief Complaints: * B ite feels off with no comfortable resting spotJaw gets sore every afternoonHeadaches at templesClenching during the day. * HPI: S ubjective: Subjective P atient presents for GIRMA recheck . TMD Condition N o soreness H eadaches not as bad, had to tell too because he takes advil for his knee everyday. Maybe slightly C lenching not to much, but thinks maybe a little bit W ith the appliance he can rest his jaw alot easier H e feels that it is better.. Patient Comments H lewis did not notice much difference with the PBM and the injections. He is still trying to keep his tongue on the roof of his mouth. He believes he has a high spot on the crown on the lower left. He seems to hit it first and the dentist did not do anything. He said he had some vertigo these past few days, this started Saturday. He still have a touch of it.. Changes in medical history n one . Changes in medication n one . A ppliance Status: Patient wears O LGA director multimedia . Eats w ithout appliance . C urrent Exercises: Patient exercises r esistance exercises . * Medical History: * Surgical History: * Hospitalization/Major Diagno stic Procedure: * Medications: Objective: * Vitals: * Examination: M andibular Range of Motion: Opening (mm) 5 2. Opening: Noise b ilateral. Right (mm) 1 3. Right: Noise b ilateral. Left (mm) 1 5. Left: Noise b ilateral. Protrusion (mm) 1 2. Protrusion: Noise b ilateral. P alpations at Recheck: Masseter--origin R ight: 0, Left: 0. Masseter--body R ight: 1, Left: 1. Masseter--insertion R ight: 0, Left: 0. Retromandibular R ight: 0, Left: 0. Anterior Temporalis R ight: 0, Left: 0. Middle Temporalis R ight: 0, Left: 0. Posterior Temporalis R ight: 0, Left: 0. Occipital Area R ight: 0, Left: 0. Posterior Digastric R ight: 0, Left: 0. SCM R ight: 0, Left: 0. Trapezius R ight: 0, Left: 0. Trapezius--origin R ight: 0, Left: 0. Trapezius--midbelly R ight: 0, Left: 0. Trapezius--insertion R ight: 0, Left: 0. TMJ Pain R ight: 0, Left: 0. TMJ Clicking R ight: 0, Left: 0. TMJ Crepitus R ight: 0, Left: 0. Assessment: * Assessment: 1. A rticular disc disorder of bilateral temporomandibular joint - M26.633 (Primary) 2 . A rthralgia of right temporomandibular joint - M26.621 3 . C hronic tension-type headache, not intractable - G44.229 4 . C ervicalgia - M54.2 5 . M yalgia - M79.10 Condtion slowly improving Plan: * Treatment: * Procedures: A ppliance Adjustments: Appliance adjustments b alanced the occlusion of the orthosis. A ppliance Recommendations: Recommended appliance wear as follows O LGA, director multimedia.? E xercises: Exercise Recommendations b egin doing, Cave suck. ? R ecommended Consultations: Recommended consultation(s) P hysical therapist, Ketty Lopez at [facility]. P koby: Seen By Corinna Blanc D.D.S., M.S.. Dental Rehabilitation Program Coordinator LDA. Dejan Cross ossible reduced wear at next visit. * Procedure Codes: * Follow Up: 4 Weeks (Reason: GIRMA recheck) * Billing Information: * Visit Code: 06282 Office Visit. * Procedure Codes: * Sign off status: Completed true * Provider: Corinna Blanc D.D.S., M.S. Date: 0 06/02/2024 Generated for Melanie hernandez/Neha/Silvinoitting on: 0 02/20/2025 04:42 PM CDT History and Physical Notes * HPI (History of Present Illness) Category Sub-Category Detail Notes Category Not es Appliance Status Patient wears GIRMA director multimedia Eats without appliance Current Exercises Patient exercises resistance exercis es Subjective Subjective Patient presents for GIRMA re check TMD Condition No soreness Headache s not as bad, had to tell too because he takes advil for his knee everyday. Maybe slightly Clenching not to much, but thinks maybe a little bit With the appliance he can rest his jaw alot easier He feels that it is better. Patient Comments He did not notice mu ch difference with the PBM and the injections. He is still trying to keep his tongue on the roof of his mouth. He believes he has a high spot on the crown on the lower left. He seems to hit it first and the dentist did not do anything. He said he had some vertigo these past few days, this started Saturday. He still have a touch of it. Changes in medical history none Changes in medication none Examination Category Sub-Category Detail Notes Category Not es Palpations at Recheck Masseter--origin Right: 0, Left: 0 Masseter--body Right: 1, Left: 1 Masseter--insertion Right: 0, Left: 0 Retromandibular Right: 0, Left: 0 Anterior Temporalis Right: 0, Left: 0 Middle Temporalis Right: 0, Left: 0 Posterior Temporalis Right: 0, Left: 0 Occipital Area Right: 0, Left: 0 Posterior Digastric Right: 0, Left: 0 SCM Right: 0, Left: 0 Trapezius--origin Right: 0, Left: 0 Trapezius--midbelly Right: 0, Left: 0 Trapezius--insertion Right: 0, Left: 0 TMJ Pain Right: 0, Left: 0 TMJ Clicking Right: 0, Left: 0 TMJ Crepitus Right: 0, Left: 0 Trapezius Right: 0, Left: 0 Mandibular Range of Motion Opening (mm) 52 Right (mm) 13 Opening: Noise bilateral Right: Noise bilateral Left (mm) 15 Left: Noise bilateral Protrusion (mm) 12 Protrusion: Noise bilateral
--- OUTSIDE RECORDS SUMMARY | 2025-02-20 16:43 | XMS_ITS | Encounter Summary ---
Author Organization [facility] Address [address] [place] [address]. [place] [address] Care Team Providers Care Machine Stripper Cutter Name Role Phone Walter Ibarra MD Primary Care Provider [phone] Walter Ibarra MD Unavailable Chetan Judge DO Primary Care Provider [phone] Chetan Judge DO Unavailable [phone] Reason for Visit * Reason Onset Date Comments Refill Request 10/13/2021 Lorazepam Encounter Details Date Type Department Care Team (Late st Contact Info) Description 10/13/2021 MyC Refill [address] [address] [place] [address] [place] [address] Refill Request (Lorazepam) Social History Tobacco Use Types Packs/Day Years [...] PM CDT Legal Sex Male 3:36 AM 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 Gender Identity Male 06/22/2021 1:40 PM CDT Sexual Orientation Not on file Occupation Industry Job Start Date Job End Date Not on file Not on file Not on file Not on file documented as of this encounter Miscellaneous Notes * Telephone Encounter - Virgen Lu RN - 10/13/2021 11:13 AM CST Duplicate S NOTES DEVELOPER documented in this encounter Plan of Treatment Not on file documented as of this encounter Visit Diagnoses Diagnosis Panic attacks Panic disorder without agoraphobia Generalized anxiety disorder documented in this encounter Additional Health Concerns Assessment Noted Time PHQ-9 Depression Total Score: 1 06/14/20 8:56 AM CDT documented as of this encounter Care Teams Machine Stripper Cutter Relationship Specialty Start Date End Date Walter Ibarra MD PCP - General Family Practice 09/05/15 06/06/23 [place] [address] [place] [address] PCP - General Family Medicine 06/07/23 [place] [address] [place] [address] Assigned PCP 07/30/21 06/28/23 [place] [address] [place] [address] Assigned PCP 06/29/23 documented as of this encounter
--- OUTSIDE RECORDS SUMMARY | 2025-02-20 16:43 | XMS_ITS | Encounter Summary ---
Author Organization [facility] Address [address] [place] [address]. [place] [address] Care Team Providers Care Cracking And Fanning Machine Operator Name Role Phone Chetan Judge DO Primary Care Provider Chetan Judge DO Unavailable [phone] Encounter Details Date Type Department Care Team (Late st Contact Info) Description 02/15/2025 MyC Medical Advice [facility] [id number] [place] [address] [place] [id number] [place] [address] Social History Tobacco Use Types Packs/Day Years Used Date Smoking Tobacco: Former Cigarettes Q uit: 08/21/2004 Passive Smoke Exposure: Never Smokeless Tobacco: Current Comments:Rarely Chewing toba forensic accountant Alcohol Use Standard Drinks/Week Comments Yes [...] any clubs o r organizations such as buddhism groups, unions, fraternal or athletic groups, or [...] Answer Date Recorded PHQ-2 Score 0 02/14/2024 [facility] - Occupational Stress Questionnaire Answer Date Recorded [...] PM CDT Legal Sex Male 3:36 AM RAIMANN MACHINE OPERATOR Gender Identity Male 06/22/2021 1:40 PM [...] documented as of this encounter Care Teams Cracking And Fanning Machine Operator Relationship Specialty [place] [address] [place] [address] PCP - General Family Medicine 06/07/23 [place] [address] [place] [address] Assigned PCP 06/29/23 documented as of this encounter
--- OUTSIDE RECORDS SUMMARY | 2025-02-20 16:43 | XMS_ITS | Encounter Summary ---
Author Organization [facility] Address [address] [place] [address]. [place] [address] Care Team Providers Care Senior Systems Administrator Name Role Phone None Primary Care Provider Unavailabl e Walter Ibarra MD Primary Care Provider [phone] Watler Ibarra MD Unavailable Walter Ibarra MD Unavailable Walter Ibarra MD Unavailable Walter Ibarra MD Unavailable Walter Ibarra MD Unavailable Chetan Judge DO Primary Care Provider [phone] Chetan Judge DO Unavailable [phone] Reason for Visit * Reason Onset Date Comments Refill Request 08/29/2015 Lexapro, Lorazep am Encounter Details Date Type Department Care Team (Late st Contact Info) Description 08/29/2015 MyC Refill M [address], [address] [place] [address] [place] [address] [place] [address] Refill Request (Lexapro, Lorazepam) Social History Tobacco Use Types Packs/Day Years [...] PM CDT 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 Sex Male 3:36 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 SANITARIAN Gender Identity Male 06/22/2021 1:40 PM CDT Sexual Orientation Not on file Occupation Industry Job Start Date Job End Date Not on file Not on file Not on file Not on file documented as of this encounter Miscellaneous Notes * Telephone Encounter - Yessica Hooper - 08/31/2015 8:52 AM FOOD SANITARIAN Ativan faxed to pharmacy Yessica Lap Machine Tender [facility] SANITARIAN * Telephone Encounter - Walter Ibarra MD - 08/29/2015 4:19 PM FOOD SANITARIAN 10 Ativan lasted about 6w, will double this to 20, this should be sufficient for 3 months at current usage pattern. 3m refill for Lexapro. Walter Ibarra MD SANITARIAN * Telephone Encounter - Virgen Lu RN - 08/29/2015 3:08 PM CST Lexapro, Lorazepam Last Written Prescription Date: 08/02/2015 Last Fill Quantity: 30, # refills: 4 Last Office Visit with [facility] primary care provider: 07/12/2015 Future Office visit: Routing refill request to provider for review/approval because: Drug not on the [facility] refill protocol or controlled substance. Virgen Lu RN SANITARIAN * Telephone Encounter - Virgen uL RN - 08/29/2015 3:07 [facility] Original authorizing provider: MD Adrian Garrett would like a refill of the following medications: LORazepam (ATIVAN) 0.5 MG tablet [Walter Ibarra MD] escitalopram (LEXAPRO) 20 MG tablet [Walter Ibarra MD] Preferred pharmacy: [id number] - [place], [place] - [address] [address] Comment: Could I please get 90 Lexapro and 30 Lorazepam just to cut down on trips to the drugstore please. Thanks Adrian SANITARIAN documented in this encounter Plan of Treatment Not on file documented as of this encounter Visit Diagnoses Diagnosis Generalized anxiety disorder- Primary Panic attacks Panic disorder without agoraphobia documented in this encounter Additional Health Concerns Assessment Noted Time PHQ-9 Depression Total Score: 1 07/13/20 15 7:21 AM CDT documented as of this encounter Care Teams Senior Systems Administrator Relationship Specialty Start Date End Date None PCP - General 12/06/14 09/04/15 Walter Ibarra MD PCP - General Family Practice 09/05/15 06/06/23 [place] [address] [address] [address] PCP - Assigned PCP 12/28/14 12/23/18 [place] [address] [place] [address] PCP - General Family Medicine 06/07/23 [place] [address] [address] [address] Assigned PCP 12/28/14 06/18/20 [place] [address] [address] [address] Assigned PCP 07/30/21 06/28/23 [place] [address] [address] [address] Assigned PCP 06/19/20 06/17/21 [place] [address] [place] [address] Assigned PCP 06/18/21 07/29/21 [place] [address] [place] [address] Assigned PCP 06/29/23 documented as of this encounter
--- OUTSIDE RECORDS SUMMARY | 2025-02-20 16:43 | XMS_ITS | Encounter Summary ---
Author Organization [facility] Address [address] [place] [address] Care Team Providers Care Hvac Design Engineer Name Role Phone Evan Heck MD Primary Care Provider None Primary Care Provider Unavailabl e Walter Ibarra MD Primary Care Provider [phone] Walter Ibarra MD Unavailable Walter Ibarra MD Unavailable Walter Ibarra MD Unavailable Walter Ibarra MD Unavailable Walter Ibarra MD Unavailable Chetan Judge DO Primary Care Provider [phone] Chetan Judge DO Unavailable [phone] Encounter Details Date Type Department Care Team (Late st Contact Info) Description 09/27/2010 [facility] Medical Advice [facility] [address] [place] [address] Evan Heck MD [address] [place] [address] Social History Tobacco Use Types Packs/Day Years Used Date Smoking Tobacco: Former Cigarettes Q uit: 08/21/2004 Comments:light smoker in the past Alcohol Use Standard Drinks/Week Comments No 0 (1 standard drink = 0.6 oz pur e alcohol) quit six years ago Sex and Gender Information Value Date Recorded Sex Assigned at Male 06/22/2021 1:40 PM CDT 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 Gender Identity Male 06/22/2021 1:40 PM CDT Sexual Orientation Not on file Occupation Industry Job Start Date Job End Date Not on file Not on file Not on file Not on file documented as of this encounter Plan of Treatment Not on file documented as of this encounter Visit Diagnoses Not on filedocumented in this encounter Care Teams Hvac Design Engineer Relationship Specialty Start Date End Date Evan Heck MD PCP - General 12/05/01 12/05/14 None PCP - General 12/06/14 09/04/15 Walter Ibarra MD PCP - General Family Practice 09/05/15 06/06/23 [place] [address] [address] [address] PCP - Assigned PCP 12/28/14 12/23/18 [place] [address] [place] [address] PCP - General Family Medicine 06/07/23 [place] [address] [address] [address] Assigned PCP 12/28/14 06/18/20 [place] [address] [address] [address] Assigned PCP 07/30/21 06/28/23 [place] [address] [address] [address] Assigned PCP 06/19/20 06/17/21 [place] [address] [address] [address] Assigned PCP 06/18/21 07/29/21 [place] [address] [place] [address] Assigned PCP 06/29/23 documented as of this encounter
--- OUTSIDE RECORDS SUMMARY | 2025-02-20 16:43 | XMS_ITS | Clinical Summary ---
Author Organization [facility] Address [address] [place] [address] Care Team Providers Care Internal Security Manager Name Role Phone Chetan Judge DO Primary Care Provider [phone] Allergies No known active allergies Medications ATENOLOL 25 MG TAB take 1 tablet (25 mg) by oral route twice daily Active LEXAPRO 20 MG TAB take 1 tablet (20 mg) by oral route once daily Active ADVIL 200 MG TAB take 1-3 tablet by oral route every 6 hours as needed with food Active traZODone (DESYREL) 50 mg tablet Take 1 tablet by mouth at bedtime. 0 9 Active ibuprofen (ADVIL; MOTRIN) 800 mg tabletIndication s:Neurogenic claudication due to lumbar spinal stenosis Take 1 tablet by mouth every 6 hours if needed for Pain. 60 tablet 06/24/2019 3:01 PM CDT 9 Active LORazepam (ATIVAN) 0.5 mg tab Take 0.5 mg by mouth every 8 hours if needed. FOR ANXIETY 0 9 Active CPAPIndications: SHANNON (obstructive sleep apnea) RESMED CPAP (E0601) machine for home use at pressure:10 cmw, Choice of mask (A7030 or A7034) w/full face cushion (A7031) x1/mo, nasal cushion (A7032) x2/mo, or nasal pillows (A7033) x 2/mo; Length of Need: 99 months; Frequency of use: Daily 1 Each 5 Active CPAPIndications: SHANNON (obstructive sleep apnea) RESMED CPAP (E0601) machine for home use at pressure:12 cmw, Choice of mask (A7030 or A7034) w/full face cushion (A7031) x1/mo, nasal cushion (A7032) x2/mo, or nasal pillows (A7033) x 2/mo; Length of Need: 99 months; Frequency of use: Daily 1 Each 11 5 02/17/20 25 Discontin ued(Reord er (E-cancel not sent)) Active Problems Problem Noted Date Diagnosed Date HTN (hypertension), benign 06/08/2019 TONY (generalized anxiety disorder) 06/08/2019 Panic attacks 06/08/2019 Palpitations 06/08/2019 SHANNON (obstructive sleep apnea) 06/08/2019 Obesity 03/22/2010 Neurogenic claudication due to lumbar spinal roxana nosis 04/15/2009 Encounters Date Type Department Care Team Description 02/15/2025 Telephone [facility] [address] [place] [address] Maximo Leroy MD Questions (Concerns) from Last 3 Months Family History Medical History Relation Name Comments Good Health Brother x 2 Heart attack Father Anxiety disorder Mother Basal cell carcinoma Mother Depression Mother Good Health Sister Relation Name Status Comments Brother Father Mother Alive Sister Social History Tobacco Use Types Packs/Day Years Used Date Smoking Tobacco: Never Smokeless Tobacco: Current Chew Alcohol Use Standard Drinks/Week Comments Yes 0 (1 standard drink = 0.6 oz pur e alcohol) a few times per week. Sex and Gender Information Value Date Recorded Sex Assigned at Not on file Legal Sex Male 6:17 AM RETAIL HELPER Gender Identity Not on file Sexual Orientation Not on file Obstetrics History Last Filed Vital Signs Vital Sign Reading Time Taken Comments Blood Pressure 167/80 10/28/2024 11:46 AM RETAIL HELPER Pulse 55 10/28/2024 11:44 AM RETAIL HELPER Temperature 36.1 C (97 F) 07/23/2020 4:45 PM CDT Respiratory Rate 18 07/23/2020 4:45 PM CDT Oxygen Saturation 96% 10/28/2024 11: 44 AM RETAIL HELPER Inhaled Oxygen Concentration - - Weight 118.6 kg (261 lb 6.4 oz) 025 11:44 AM RETAIL HELPER Height 176.5 cm (5' 9.5) 10/28/2024 11 :44 AM RETAIL HELPER Body Mass Index 38.05 10/28/2024 11:44 AM RETAIL HELPER Plan of Treatment Health Maintenance Due Date Last Done Comments Tdap 1971 Depression screening for age 12+ 1972 HIV for age 15-65 1975 Hepatitis C screening for age 18-79 1978 Tetanus booster 1980 Colonoscopy through age 75 2005 Lipids for age 45-75 2005 Pneumococcal series for age 50+ (1 of 1 - PCV) 010 Zoster (shingles) series for age 50+ (1 of 2) 08/27/20 10 COVID-19 vaccine series ( - season) Influenza Vaccine (Season Ended) 2025 BMI (ht and wt on same day) for age 18+ 10/28/2025 0 10/28/2024 RSV vaccine for adults or pr egnancy (1 - 1-dose 75+ series) 2035 Insurance [employer] CHOICE MEDICA CHOICE Advance Directives * Full Code (Latest Code Status on File) Date Activated Date Inactivated Comments 06/24/2019 2:27 PM 06/25/2019 2:18 PM * Full Code Date Activated Date Inactivated Comments 04/26/2009 11:52 AM 04/29/2009 3:41 PM * Full Code Date Activated Date Inactivated Comments 04/26/2009 5:48 AM 04/26/2009 11:52 AM Care Teams Internal Security Manager Relationship Specialty [place] [address] [place] [address] PCP - General Family Practice 10/28/24
--- OUTSIDE RECORDS SUMMARY | 2025-02-20 16:43 | XMS_ITS | Encounter Summary ---
Author Organization [facility] Address [address] [place] [address]. [place] [address] Care Team Providers Care Ethnographer Name Role Phone Chetan Judge DO Primary Care Provider Chetan Judge DO Unavailable [phone] Reason for Visit * Reason Onset Date Comments Refill Request 02/12/2025 Encounter Details Date Type Department Care Team (Late st Contact Info) Description 02/12/2025 MyC Refill [facility] [address] [place] [address] [place] [address] [place] [address] Refill Request Social History Tobacco Use Types Packs/Day Years Used Date Smoking Tobacco: Former Cigarettes Q uit: 08/21/2004 Passive Smoke Exposure: Never Smokeless Tobacco: Current Comments:Rarely Chewing 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 More than 4 times per year 10/03/2022 Do you belong to any clubs o r organizations such as worship groups, unions, fraternal or athletic groups, or [...] Answer Date Recorded PHQ-2 Score 0 02/14/2024 [facility] - [...] place to sleep or slept in a mcc (including now)? No 10/03/2022 Adolescent Education Answer [...] PM CDT Legal Sex Male 3:36 AM COVERING MACHINE OPERATOR HELPER Gender Identity Male 06/22/2021 1:40 PM CDT Sexual Orientation Not on file Occupation Industry Job Start Date Job End Date Not on file Not on file Not on file Not on file documented as of this encounter Plan of Treatment Not on file documented as of this encounter Visit Diagnoses Diagnosis Panic attacks Panic disorder without agoraphobia Generalized anxiety disorder Palpitations Hypertension goal BP (blood pressure) < 140/90 Unspecified essential hypertension documented in this encounter Additional Health Concerns Assessment Noted Time PHQ-9 Depression Total Score: 0 02/14/20 24 4:15 PM CDT documented as of this encounter Care Teams Ethnographer Relationship Specialty Start [place] [address] [place] [address] PCP - General Family Medicine 06/07/23 [place] [address] [place] [address] Assigned PCP 06/29/23 documented as of this encounter
--- OUTSIDE RECORDS SUMMARY | 2025-02-20 16:43 | XMS_ITS | Encounter Summary ---
Author Organization [facility] Address [address] [place] [address]. [place] [address] Care Team Providers Care Drug Safety Assistant Name Role Phone Chetan Judge DO Primary Care Provider Chetan Judge DO Unavailable [phone] Encounter Details Date Type Department Care Team (Late st Contact Info) Description 01/04/[address] [facility] [id number] [place] [address] [place] DO [id number] [place] [address] Social History Tobacco Use Types Packs/Day Years Used Date Smoking Tobacco: Former Cigarettes Q uit: 08/21/2004 Passive Smoke Exposure: Never Smokeless Tobacco: Current Comments:Rarely Chewing toba tobacco stripper hand Alcohol Use Standard Drinks/Week Comments Yes 0 [...] often do you attend chur ch or uatsdin services? More than 4 times per year 10/03/2022 Do you belong to any clubs o r organizations such as mormon groups, unions, fraternal or athletic groups, or [...] Answer Date Recorded PHQ-2 Score 0 02/14/2024 [facility] - Occupational Stress Questionnaire Answer [...] place to sleep or slept in a retirement (including now)? No 10/03/2022 Adolescent Education Answer [...] PM CDT Legal Sex Male 3:36 AM NUCLEAR RADIATION ENGINEER Gender Identity Male 06/22/2021 1:40 PM CDT [...] documented as of this encounter Care Teams Drug Safety Assistant Relationship Specialty [place] [address] [place] [address] PCP - General Family Medicine 06/07/23 [place] [address] [place] [address] Assigned PCP 06/29/23 documented as of this encounter
--- OUTSIDE RECORDS SUMMARY | 2025-02-20 16:43 | XMS_ITS | Encounter Summary ---
Author Organization [facility] Address [address] [place] [address]. 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 No / Unsure 08/30/2021 11:39 AM DISH WASHER documented as of this encounter Plan of Treatment Not on file documented as of this encounter Visit Diagnoses Not on filedocumented in this encounter Additional Health Concerns Assessment Noted Time PHQ-9 Depression Total Score: 1 06/14/20 20 8:56 AM CDT documented as of this encounter Care Teams Lockstitch Machine Operator Relationship Specialty Start Date End Date Walter Ibarra MD PCP - General Family Practice 09/05/15 06/06/23 [place] [address] [place] [address] PCP - General Family Medicine 06/07/23 [place] [address] [place] [address] Assigned PCP 07/30/21 06/28/23 [place] [address] [place] [address] Assigned PCP 06/29/23 documented as of this encounter
--- OUTSIDE RECORDS SUMMARY | 2025-02-20 16:43 | XMS_ITS | Encounter Summary ---
Author Organization [facility] Address [address] [place] [address]. [place] [address] Care Team Providers Care Outdoor Power Equipment Mechanic Name Role Phone None Primary Care Provider Unavailabl e Walter Ibarra MD Primary Care Provider [phone] Walter Ibarra MD Unavailable Walter Ibarra MD Unavailable Walter Ibarra MD Unavailable Walter Ibarra MD Unavailable Walter Ibarra MD Unavailable Chetan Judge DO Primary Care Provider [phone] Cheatn Judge DO Unavailable [phone] Reason for Visit * Reason Onset Date Comments Refill Request 07/05/2015 Lexapro Encounter Details Date Type Department Care Team (Late st Contact Info) Description 07/05/2015 MyC Medical Advice [address], [address] [place] [address] [place] [address] [place] [address] Refill Request (Lexapro) Social History Tobacco Use Types Packs/Day Years [...] PM CDT Legal Sex Male 3:36 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 MIXING PLANT Gender Identity Male 06/22/2021 1:40 PM CDT Sexual Orientation Not on file Occupation Industry Job Start Date Job End Date Not on file Not on file Not on file Not on file documented as of this encounter Plan of Treatment Not on file documented as of this encounter Visit Diagnoses Not on filedocumented in this encounter Care Teams Outdoor Power Equipment Mechanic Relationship Specialty Start Date End Date None PCP - General 12/06/14 09/04/15 Walter Ibarra MD PCP - General Family Practice 09/05/15 06/06/23 [place] [address] [address] [address] PCP - Assigned PCP 12/28/14 12/23/18 [place] [address] [address] [address] PCP - General Family Medicine 06/07/23 [place] [address] [address] [address] Assigned PCP 12/28/14 06/18/20 [place] [address] [address] [address] Assigned PCP 07/30/21 06/28/23 [place] [address] [address] [address] Assigned PCP 06/19/20 06/17/21 [place] [address] [place] [address] Assigned PCP 06/18/21 07/29/21 [place] [address] [place] [address] Assigned PCP 06/29/23 documented as of this encounter
--- OUTSIDE RECORDS SUMMARY | 2025-02-20 16:43 | XMS_ITS ---
Author Organization [facility] Address [address] [place] [address] Care Team Providers Care Master Control Supervisor Name Role Phone Gareth Rob D.D.S., KIM Unavailable [phone] REASON FOR VISIT Bite feels off with no comfortable resting spot, Jaw gets sore every afternoon, Headaches at temples, Clenching during the day. 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 (ICD-10 - M26.633) Minor myalgia/ten ethan persists 06/30/2024 Arthralgia of right temporomandibular joint (ICD-10 - M26.621) Minor myalgia/ten ethan persists 06/30/2024 Chronic tension-type headache, not intractable (ICD-10 - G44.229) Minor myalgia/ten ethan persists 06/30/2024 Cervicalgia (ICD-10 - M54.2) Minor myalgia/ten ethan persists 06/30/2024 Myalgia (ICD-10 - M79.10) Minor myalgia/ten ethan persists Plan Of Treatment Next Appt Details Follow Up: 4 Weeks, Reason: recheck Procedure Notes * Category Sub-Category Detail Notes Appliance Adjustments Appliance adjustments yohana nced the occlusion of the orthosis Appliance Recommendations Recommended ap pliance wear as follows 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 Dental Registered Physical Therapist Stacy Qiu, LDA, CTA Progress Notes * Adrian DE JESUSDOB:1960 (63 yo M)Acc No.[id number]:06/30/2024 Patient: Adrian ACOSTA Provider: Corinna Blanc D.D.S., M.S. :1960 A ge:63 Y S ex:Male Date:06/30/2024 Address:[address] [place] [address] [id number] Subjective: * Chief Complaints: * B ite feels off with no comfortable resting spotJaw gets sore every afternoonHeadaches at templesClenching during the day. * HPI: S ubjective: Subjective P atient presents for GIRMA recheck and scans. He reports he has not been eating with the appliance and feeling ok. He does notice if it's out too long he ends up clenching and is aware the tooth is in contact. B ite off/ no comfortable resting spot- Still catches self passivly resting on appliance or hitting high spot on molar without appliance J aw soreness- not really, onlu if appliance out too long H eadaches- none. TMD Condition i mproving since last office visit. Sleep Quality h as continued to be good since their last appointment. Changes in medical history n one. Changes in medication n one. 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 Eats w ithout appliance. C urrent Exercises: Patient exercises r esistance exercises. * Medical History: * Surgical History: * Hospitalization/Major Diagno stic Procedure: * Medications: Objective: * Vitals: * Examination: M andibular Range of Motion: Opening (mm) 5 2. Right (mm) 1 3. Left (mm) 1 3. Left: Noise l eft. Protrusion (mm) 9 . Measurement of tongue tip to incisive papilla (mm) 3 7.? P alpations at Recheck: [place]--origin R ight: 1, Left: 2. [place]--body R ight: 2, Left: 3. [place]--insertion R ight: 1, Left: 2. Retromandibular R ight: 1, Left: 1. Anterior Temporalis R ight: 1, Left: 1. Middle Temporalis R ight: 2, Left: 2. Posterior Temporalis R ight: 1, Left: 1. Occipital Area R ight: 0, Left: 0. Posterior Digastric R ight: 1, Left: 1. SCM R ight: 0, Left: 0. TMJ Pain R ight: 1, Left: 1. TMJ Clicking R ight: 0, Left: 0. TMJ Crepitus R ight: 0, Left: 0. P arasagittal Tomograms - Right TMJ: Fossa n ormal . Condyle N ormal . Articular surface c onvex . Right joint space at maximum intercuspation n ormal . Condyle/Fossa relationships c ondyle relates properly to the fossa . Condylar head displays (Anteroposterior views) n ormal bony contours . Articular space n ormal . P arasagittal Tomograms - Left TMJ: Fossa n ormal . Condyle N ormal . Articular surface c onvex . Left joint space at maximum intercuspation s lightly restricted . Condyle/Fossa relationships c ondyle is displaced posteriorly . Condylar head displays (Anteroposterior views) n ormal bony contours . Articular space n ormal . O rthopantomogram: Right Condyle i s intact with normal articular contours and normal articular space . Left Condyle i s intact with normal articular contours and normal articular space . Missing teeth # 1, 16, 17, 25, 32 . Antigonial notching b ilateral . L ateral Cervical View: Spinous process of atlas i n normal position . Mandibular plane angle f lat . Maxillary skeletal pattern p rognathic . Maxillary anterior teeth r etroclined . Mandibular skeletal pattern p rognathic . Mandibular anterior teeth r etroclined . Soft palate n ormal in thickness . C ranial Sectional: Soft palate n ormal in thickness . Minimum anteroposterior airway dimension 7 mm posterior to the soft palate 7 mm p osterior to the epiglottis . Epiglottis s lightly prolapsed . Nasal septum s lightly deviated to the right . Nasal turbinates a symmetric and larger on the right . Nasal airway appears r estricted bilaterally . Maxillary sinuses n early symmetric . Radiopacity b oth maxillary sinuses radiolucent . ? Assessment: * Assessment: 1. A rticular disc disorder of bilateral temporomandibular joint - M26.633 (Primary) 2 . A rthralgia of right temporomandibular joint - M26.621 3 . C hronic tension-type headache, not intractable - G44.229 4 . C ervicalgia - M54.2 5 . M yalgia - M79.10 Minor myalgia/tension persis ts Plan: * Treatment: * Procedures: A ppliance Adjustments: Appliance adjustments b alanced the occlusion of the orthosis. 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 E xercises: Exercise Recommendations b egin doing, TMJ decompression cave suck, open resistence. P roviders: Seen By Corinna Blanc D.D.S., M.S.. Dental Registered Physical Therapist [address], CTA. c losed scan taken today. We will consider reducing wear nextvist i f improving. * Procedure Codes: [address] MAXILLOFACIAL W/O DYE * Follow Up: 4 Weeks (Reason: recheck) * Billing Information: * Visit Code: 68231 Office Visit. * Procedure Codes: 82901 CT MAXILLOFACIAL W/O DYE. * Sign off status: Completed true * Provider: Corinna Blanc D.D.S., M.S. 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 He reports he has not been eating with the appliance and feeling ok. He does notice if it's out too long he ends up clenching and is aware the tooth is in contact. Bite off/ no comfortable resting spot- Still catches self passivly resting on appliance or hitting high spot on molar without appliance Jaw soreness- not really, onlu if appliance out too long Headaches- none TMD Condition improving since last office visit Sleep Quality has continued to be good since their last appointment Patient Comments Referred by Goals with orthodontic intervention incl ude Changes in medical history none Changes in medication none Examination Category Sub-Category Detail Notes Category Not es Cranial Sectional Soft palate normal in thickness Minimum anteroposterior airway dimension 7 mm posterior to the soft palate 7 mm posterior to the epiglottis Epiglottis slightly prolapsed Nasal septum slightly deviated to the right Nasal turbinates asymmetric and large r on the right Nasal airway appears restricted bilatera lly Maxillary sinuses nearly symmetric Radiopacity both maxillary sinus es radiolucent Lateral Cervical View Spinous process of atlas in norm al position Mandibular plane angle flat Maxillary skeletal pattern prognathic Maxillary anterior teeth retroclined Mandibular skeletal pattern prognathic Mandibular anterior teeth retroclined Soft palate normal in thickness Orthopantomogram Right Condyle is intact with normal articular contours and normal articular space Left Condyle is intact with tamica l articular contours and normal articular space Missing teeth #1, 16, 17, 25, 32 Antigonial notching bilateral Parasagittal Tomograms - Right TMJ Fossa normal Condyle Normal Articular surface convex Right joint space at maximum intercuspat ion normal Condyle/Fossa relationships condyle rela lisseth properly to the fossa Condylar head displays (Anteroposterior views) normal bony contours Articular space normal Parasagittal Tomograms - Left TMJ Fossa normal Condyle Normal Articular surface convex Left joint space at maximum intercuspati on slightly restricted Condyle/Fossa relationships condyle is d isplaced posteriorly Condylar head displays (Anteroposterior views) normal bony contours Articular space normal Palpations at Recheck [place]--origin Right: 1, Left: 2 [place]--body Right: 2, Left: 3 [place]--insertion Right: 1, Left: 2 Retromandibular Right: 1, Left: 1 Anterior Temporalis Right: 1, Left: 1 Middle Temporalis Right: 2, Left: 2 Posterior Temporalis Right: 1, Left: 1 Occipital Area Right: 0, Left: 0 Posterior Digastric Right: 1, Left: 1 SCM Right: 0, Left: 0 TMJ Pain Right: 1, Left: 1 TMJ Clicking Right: 0, Left: 0 TMJ Crepitus Right: 0, Left: 0 Mandibular Range of Motion Opening (mm) 52 Right (mm) 13 Left (mm) 13 Left: Noise left Protrusion (mm) 9 Measurement of tongue tip to incisive pa tere (mm) 37
--- OUTSIDE RECORDS SUMMARY | 2025-02-20 16:43 | XMS_ITS | Encounter Summary ---
Author Organization [facility] Address [address] [place] [address]. [place] [address] Care Team Providers Care Wood Setter Name Role Phone None Primary Care Provider Unavailabl e Walter Ibarra MD Primary Care Provider [phone] Walter Ibarra MD Unavailable Walter Ibarra MD Unavailable Walter Ibarra MD Unavailable Walter Ibarra MD Unavailable Walter Ibarra MD Unavailable Chetan Judge DO Primary Care Provider [phone] Chetan Judge DO Unavailable [phone] Reason for Visit * Reason Onset Date Comments Refill Request 06/25/2015 Lorazepam 0.5mg Encounter Details Date Type Department Care Team (Late st Contact Info) Description 06/25/2015 MyC Refill [address], [address] [place] [address] [place] [address] [place] [address] Refill Request (Lorazepam 0.5mg) Social History Tobacco Use Types Packs/Day Years [...] PM CDT 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 Gender Identity Male 06/22/2021 1:40 PM CDT Sexual Orientation Not on file Occupation Industry Job Start Date Job End Date Not on file Not on file Not on file Not on file documented as of this encounter Miscellaneous Notes * Telephone Encounter - Virgen Lu RN - 06/28/2015 10:46 AM CDT Lorazepam 0.5mg Last Written Prescription Date: 04/01/2015 Last Fill Quantity: 20, # refills: 0 Last Office Visit with [facility] primary care provider: 12/20/2014 Future Office visit: Routing refill request to provider for review/approval because: Drug not on the [facility] refill protocol or controlled substance. Virgen Lu RN * Telephone Encounter - Virgen Lu RN - 06/28/2015 10:46 AM CDTMessage [facility] Original authorizing provider: MD Adrian Garrett would like a refill of the following medications: LORazepam (ATIVAN) 0.5 MG tablet [Walter Ibarra MD] Preferred pharmacy: [id number] [address] [facility] Comment: Larry Gracia, I would like to ask for 30 tablets. 20 tablets doesn't quit get me to 3 months, I think 30 would though. Thanks Adrian documented in this encounter Plan of Treatment Not on file documented as of this encounter Visit Diagnoses Diagnosis Panic attacks Panic disorder without agoraphobia documented in this encounter Care Teams Wood Setter Relationship Specialty Start Date End Date None PCP - General 12/06/14 09/04/15 Walter Ibarra MD PCP - General Family Practice 09/05/15 06/06/23 [place] [address] [place] [address] PCP - Assigned PCP 12/28/14 12/23/18 [place] [address] [place] [address] PCP - General Family Medicine 06/07/23 [place] [address] [place] [address] Assigned PCP 12/28/14 06/18/20 [place] [address] [place] [address] Assigned PCP 07/30/21 06/28/23 [place] [address] [place] [address] Assigned PCP 06/19/20 06/17/21 [place] [address] [place] [address] Assigned PCP 06/18/21 07/29/21 [place] [address] [place] [address] Assigned PCP 06/29/23 documented as of this encounter
--- OUTSIDE RECORDS SUMMARY | 2025-02-20 16:43 | XMS_ITS | Clinical Summary ---
Author Organization [facility] Address [address], [place] [address] Care Team Providers Care Hat Steamer Name Role Phone Walter Ibarra MD Primary Care Provider [phone] Source Comments You are receiving this document as you are listed as the primary care provider,follow-up provider, or the patient has been referred to you for consultation.This is in compliance with the Medicare and[facility] Incentive [facility],which states Providers who transition their patient to another setting of careor provider of care or refers their patient to another provider of care shouldprovide summary care record for each transition of care or referral. [facility] Allerg[facility] No known active allergies Medications escitalopram oxalate (LEXAPRO) 20 MG tablet Take 1 Tablet (20 mg) by mouth daily. 04/28/20 16 Active ATENolol (TENORMIN) 25 MG tablet Take 1 Tablet (25 mg) by mouth two times a day. 04/28/20 16 Active hydrOXYzine pamoate (VISTARIL) 25 MG capsule Take 1 Capsule (25 mg) by mouth three times a day as needed for Itching. 30 Capsule 03/20/20 23 Active Additional Information Patient not taking.Reported on 04/30/2023 ondansetron (ZOFRAN-ODT) 4 MG disintegrating tablet Take 1 Tablet (4 mg) by mouth every 8 hours as needed for Nausea (Vomiting). Dissolve tablet on tongue. 30 Tablet 03/20/20 23 Active Additional Information Patient not taking.Reported on 04/30/2023 ondansetron (ZOFRAN-ODT) 4 MG disintegrating tabletIndications: Postoperative Nausea and Vomiting Take 1 Tablet (4 mg) by mouth every 8 hours as needed for Nausea (Vomiting). Dissolve tablet on tongue. Indications: Nausea and Vomiting Following an Operation 15 Tablet 03/20/20 Active Additional Information Patient not taking.Reported on 04/30/2023 [facility] SENNA 8.6 MG tabletIndications: Status post total left knee replacement TAKE 1 TABLET BY MOUTH AT BEDTIME NEEDED FOR CONSTIPATION (CONSTIPATION (WHILE ON PAIN PILLS)). 90 Tablet 1 05/13/20 Active oxyCODONE (ROXICODONE) 5 MG immediate release tabletIndications: Status post left knee replacement Take 1 Tablet (5 mg) by mouth every 8 hours as needed for Pain. 10 Tablet 05/21/20 Active meloxicam (MOBIC) 7.5 MG tabletIndications: Status post left knee replacement TAKE 1 TABLET (7.5 MG) BY MOUTH TWO TIMES A DAY. 60 Tablet 1 09/19/20 Active Active Problems Problem Noted Date Diagnosed Date S/P left unicompartmental knee replacement 12/21 Overview (12/21/2022): Added automatically from request for surgery [id number] Primary osteoarthritis of right knee 08/21/2022 Overview (08/21/2022): Added automatically from request for surgery [id number] Lateral epicondylitis of right elbow 04/28/2016 Social History Tobacco Use Types Packs/Day Years Used Date Smoking Tobacco: Never Smokeless Tobacco: Former Chew Tobacco Cessation:Counseling Given: Not Answered Alcohol Use Standard Drinks/Week Comments Yes 8 (1 standard drink = 0.6 oz pur e alcohol) Sex and Gender Information Value Date Recorded Sex Assigned at Not on file Legal Sex Male 4:54 PM CDT Gender Identity Not on file Sexual Orientation Not on file Last Filed Vital Signs Vital Sign Reading Time Taken Comments Blood Pressure 128/68 03/20/2023 2:30 PM CDT Pulse 69 03/20/2023 2:30 PM CDT Temperature 36.6 C (97.9 F) 03/20/2023 1:23 PM CDT Respiratory Rate 16 03/20/2023 2:30 PM CDT Oxygen Saturation 97% 03/20/2023 2:30 PM CDT Inhaled Oxygen Concentration - - Weight 113.4 kg (250 lb) 03/20/2023 7:24 AM CDT Height 177.8 cm (5' 10) 03/20/2023 7:24 AM CDT Body Mass Index 35.87 03/20/2023 7:24 AM CDT Plan of Treatment Health Maintenance Due Date Last Done Comments Colon Cancer Screening Plan Due 1960 Hep C Screening (Preventive Services) 1960 PSA Screening Discussion 1960 HIV Screening (Preventive Services) 1976 Adult Preventive Visit 1978 Cholesterol 1995 Pneumococcal Vaccine 50+ Yrs (1 of 1 - PCV) 2010 Zoster/Shingles Vaccine (1 o f 2) 2010 COVID-19 Vaccine ( - 2023-2 5 season) 2024 Influenza Vaccine (Season Ended) 2025 11/24/2019 DTaP/Tdap/Td Vaccine (3 - Tdap) 10/03/2032 10/03/2022, 09/16/2012 RSV Vaccine (1 - 1-dose 75+ series) 2035 HepA Vaccine Aged Out No longer eligi ble based on patient's age to complete this topic HepB Vaccine Aged Out No longer eligi ble based on patient's age to complete this topic Hib Vaccine Aged Out No longer eligi ble based on patient's age to complete this topic IPV (Polio) Vaccine Aged Out No longe r eligible based on patient's age to complete this topic MCV4 Vaccine Aged Out No longer eligi ble based on patient's age to complete this topic Meningococcal B Vaccine Aged Out No l onger eligible based on patient's age to complete this topic Medical Devices Implanted Type Area Survey Interviewer Device Identifier Shelf Expiration Date Model / Serial / Lot Javan Bone Biomet R 1x40 - [id number] Implanted:Qty : 1 on 07/20/2021 by Chase Toledo MD at [facility] Left: [employer] 12/18/2024 [id number] / 0 / [id number] Comp Fem Uka Javan Lm/Rl Sz5 - [id number] Implanted:Qty : 1 on 07/20/2021 by Chase Toledo MD at [facility] Left: [employer] 05/20/2023 [id number]-501-[id number] / 0 / [id number] [facility] Bone Biomet R 1x40 - [id number] Implanted:Qty : 2 on 10/08/2022 by Lencho Daniel MD at [facility] Right: [employer] 09/19/2024 [id number] / 0 / [id number] Patella All Poly Ply 35mm - [id number] Implanted:Qty : 1 on 10/08/2022 by Lencho Daniel MD at [facility] Right: [employer] 09/09/2027 [id number] / 0 / [id number] Comp Str Hyb St 14x+30 - [id number] Implanted:Qty : 1 on 10/08/2022 by Lencho Daniel MD at [facility] Right: [employer] 08/26/2032 [id number] / 0 / [id number] Stem Tib 5deg Szg Rt - [id number] Implanted:Qty : 1 on 10/08/2022 by Lencho Daniel MD at [facility] Right: [employer] 05/25/2032 [id number] / 0 / [id number] Comp Fem Ps Ccr Ps Std Sz9 Rt - [id number] Implanted:Qty : 1 on 10/08/2022 by Lencho Daniel MD at [facility] Right: [employer] 06/12/2032 [id number] / 0 / [id number] Asf Ps Ve 10mm 69 Gh Rt - [id number] Implanted:Qty : 1 on 10/08/2022 by Lencho Daniel MD at [facility] Right: [employer] 04/25/2027 [id number] / 0 / [id number] Patella All Poly Ply 38mm - [id number] Implanted:Qty : 1 on 03/20/2023 by Aman Barrera MD at [facility] Left: [employer] 10/29/2027 [id number] / 0 / [id number] Comp Fem Ps Ccr Ps Std Sz9 Lt - [id number] Implanted:Qty : 1 on 03/20/2023 by Aman Barrera MD at [facility] Left: [employer] 11/06/2032 [id number] / 0 / [id number] Asf Ps Poly 14mm 69 Ef Lt - [id number] Implanted:Qty : 1 on 03/20/2023 by Aman Barrera MD at [facility] Left: [employer] 12/14/2026 [id number] / 0 / [id number] Javan [employer] R 1x40 - [id number] Implanted:Qty : 2 on 03/20/2023 by Aman Barrera MD at [facility] Left: [employer] 08/20/2025 [id number] / 0 / [id number] Mar-511-T4l - [id number] Implanted:Qty : 1 on 07/20/2021 by Chase Toledo MD at [facility] Left: [employer] 01/18/2025 AR-511-T4L / 0 / [id number] Description:iBalance UKA tib ial cemebted tray size 4 LM/RL Lpm-638-Oxq9 - [id number] Implanted:Qty : 1 on 07/20/2021 by Chase Toledo MD at [facility] Left: [employer] 08/20/2025 AR-521-TBD8 / 0 / [id number] Description:iBalance UKA tib ial bearing implant, VIT E size 4 [id number] - [id number] Implanted:Qty : 1 on 03/20/2023 by Aman Barrera MD at [facility] Left: [employer] 06/20/2029 [id number] / 0 / [id number] Description:PERSONA REVISIN TIBIAL AUGMENT HALF BLOCK LEFT MEDIAL [id number] - [id number] Implanted:Qty : 1 on 03/20/2023 by Aman Barrera MD at [facility] Left: [employer] Orthoped[employer] 10/30/2032 [id number] / 0 / [id number] Description:PERSONA REVISION TIBIA FIXED CEMENTED [id number] - [id number] Implanted:Qty : 1 on 03/20/2023 by Aman Barrera MD at [facility] Left: [employer]oped[employer] 01/22/2033 [id number] / 0 / [id number] Description:PERSONA REVISION STEM EXTENSION TAPERED CEMENTED Insurance MEDICA CHOICE MEDICA CHOICE MEDICA CHOICE Advance Directives * Full Code (Latest Code Status on File) Date Activated Date Inactivated Comments 03/20/2023 8:46 AM 03/20/2023 4:46 PM * Full Code Date Activated Date Inactivated Comments 10/08/2022 2:57 PM 10/08/2022 8:21 PM * Full Code Date Activated Date Inactivated Comments 07/20/2021 11:59 AM 07/20/2021 4:12 PM Care Teams Hat Steamer Relationship Specialty [place] [address] [place] [address] PCP - General Family Practice 04/24/18
--- OUTSIDE RECORDS SUMMARY | 2025-02-20 16:43 | XMS_ITS | Clinical Summary ---
Author Organization [facility] Address [address] [place] [id number] Care Team Providers Care It Sales Representative Name Role Phone Chetan Judge DO Primary Care Provider [phone] Chetan Judge DO Unavailable [phone] Allergies Active Allergy Reactions Criticality Noted Date Comments Cats 09/18/2010 Dogs 09/18/2010 Grass 01/13/2010 Watery eyes, sneezing, Trees 01/13/2010 Sneezing,. Watery eyes, stuffy nose Medications ADVIL 200 MG PO TABS Take 600 mg by mouth Active diphenhydrAMINE (BENADRYL) 25 MG tablet Take 25 mg by mouth At Bedtime Active acetaminophen (TYLENOL) 500 MG tablet Take 1,000 mg by mouth 2 Active traZODone (DESYREL) 50 MG tabletIndicatio ns:Psychophysio logical insomnia Take 1 tablet (50 mg) by mouth at bedtime. 90 tablet 4 4 Active atenolol (TENORMIN) 25 MG tabletIndicatio ns:Palpitations ,Hypertension goal BP (blood pressure) < 140/90 Take 1 tablet (25 mg) by mouth 2 times daily. 180 tablet 2 5 Active escitalopram (LEXAPRO) 20 MG tabletIndicatio ns:Panic attacks,General ized anxiety disorder TAKE 1 TABLET BY MOUTH EVERY DAY 90 tablet 5 Active LORazepam (ATIVAN) 0.5 MG tabletIndicatio ns:Panic attacks,General ized anxiety disorder Take 1 tablet (0.5 mg) by mouth every 8 hours as needed for anxiety. 20 tablet 2 5 Active LORazepam (ATIVAN) 0.5 MG tabletIndicatio ns:Panic attacks,General ized anxiety disorder Take 1 tablet (0.5 mg) by mouth every 8 hours as needed for anxiety. 20 tablet 2 4 02/13/20 25 Discontinu ed(Reorder (No AVS)) Active Problems Problem Noted Date Diagnosed Date Acute postoperative pain of left knee 03/27/2023 S/P total knee arthroplasty, left 03/27/2023 Primary osteoarthritis of right knee 10/12/2022 Aftercare following right knee joint replacement surgery 10/12/2022 Morbid obesity 12/26/2021 SHANNON (obstructive sleep apnea) 06/08/2019 Hypertension goal BP (blood pressure) < 140/90 0 10/24/2011 CARDIOVASCULAR SCREENING; LDL GOAL LESS THAN 130 08/20/2010 Overview (09/16/2012): August 01/2012: Coronary artery calcification score 0.7. 37th percentile Generalized anxiety disorder 01/04/2009 Overview (08/22/2015): Diagnosis updated by automated process. Provider to review and confirm. Sciatica 01/04/2009 Palpitations 01/04/2009 Panic attacks 01/04/2009 Resolved Problems Problem Noted Date Diagnosed Date Resolved Date Aftercare following left kne e joint replacement surgery 07/21/2021 08/30/2021 Lateral epicondylitis of right elbow 04/28/2016 06/27/2021 Hypertension 03/22/2010 10/24/2011 Obesity 03/22/2010 07/16/2022 Neurogenic claudication due to lumbar spinal stenosis 04/15/2009 06/27/2021 Essential hypertension, benign 03/22/2010 Encounters Date Type Department Care Team Description 02/15/2025 MyC Medical Advice [facility] [id number] [place] [phone] Chetan Judge DO 02/12/2025 MyC Refill [address] [phone] Chetan Judge DO Refill Request 01/04/2025 MyC Medical Advice [facility] [address] [place] [phone] Chetan Judge DO 01/02/2025 Refill [facility] [id number] [place] [phone] Chetan Judge DO Medication Refill 12/08/2024 11:30 AM TRANSLATOR AND INTERPRETER [facility] [address] [phone] Chetan Judge DO Cough (Entered automatically based on rosalia... from Last 3 Months Immunizations Name Administration Dates Next Due Influenza Vaccine >6 months,quad, PF 11/24/2019 TD,PF 7+ (Tenivac) 01/29/2002 TDAP (Adacel,Boostrix) 10/03/2022 TDAP Vaccine (Boostrix) 09/16/2012 Family History Medical History Relation Comments No Known Problems Brother 1 No Known Problems Brother 2 No Known Problems Daughter C.A.D. Father secondary t o [place] Anxiety Disorder Mother Cancer Mother skin (basal) Cerebrovascular Disease Mother Depression Mother No Known Problems Sister No Known Problems Son 1 No Known Problems Son 2 Colon Cancer No family hx of Relation Status Comments Brother 1 Alive Brother 2 Alive Daughter Alive Father Maternal Grandfather Maternal Grandmother Mother Alive Paternal Grandfather Paternal Grandmother Sister Alive Son 1 Alive Son 2 Alive Social History Tobacco Use Types Packs/Day Years Used Date Smoking Tobacco: Former Cigarettes Q uit: 08/21/2004 Passive Smoke Exposure: Never Smokeless Tobacco: Current Tobacco Cessation:Ready to Q uit: Not Asked; Counseling Given: Not Answered Comments:Rarely Chewing tobacco Alcohol Use Standard Drinks/Week Comments Yes 0 [...] How often do you attend chur or orthodox services? More than 4 times per year 10/03/2022 Do you belong to any clubs o r organizations such as hinduism groups, unions, fraternal or athletic groups, or [...] Answer Date Recorded PHQ-2 Score 0 02/14/2024 [facility] [place] [facility] Occupat ional Health - Occupational Stress [...] place to sleep or slept in a custodial (including now)? No 10/03/2022 Adolescent Education Answer [...] PM CDT Legal Sex Male 3:36 AM TRANSLATOR AND INTERPRETER Gender Identity Male 06/22/2021 1:40 PM CDT Sexual Orientation Not on file Occupation Industry Job Start Date Job End Date Not on file Not on file Not on file Not on file Last Filed Vital Signs Vital Sign Reading Time Taken Comments Blood Pressure 134/74 08/26/2024 10:14 AM TRANSLATOR AND INTERPRETER Pulse 62 08/26/2024 10:14 AM TRANSLATOR AND INTERPRETER Temperature 37.4 C (99.4 F) 08/26/2024 10:14 AM TRANSLATOR AND INTERPRETER Respiratory Rate 14 08/26/2024 10:14 AM TRANSLATOR AND INTERPRETER Oxygen Saturation 96% 08/26/2024 10:14 AM TRANSLATOR AND INTERPRETER Inhaled Oxygen Concentration - - Weight 118.4 kg (261 lb) 08/26/2024 10:14 AM TRANSLATOR AND INTERPRETER Height 177.8 cm (5' 10) 08/26/2024 10:14 AM TRANSLATOR AND INTERPRETER Body Mass Index 37.45 08/26/2024 10:14 AM TRANSLATOR AND INTERPRETER Plan of Treatment Health Maintenance Due Date Last Done Comments CT COLONOGRAPHY 1960 FIT 1960 FLEX SIG 1960 sDNA (Cologuard) 1960 Pneumococcal Vaccine: 50+ Years (1 of 1 - PCV) 2010 ZOSTER IMMUNIZATION (1 of 2) 2010 YEARLY PREVENTIVE VISIT 06/07/2024 06/07/20 23, 12/26/2021, 09/19/2010 COVID-19 Vaccine ( - season) 2024 PHQ-2 (once per calendar year) 2024 02/14/2024, 02/14/2024, 12/23/2023, Additional history exists ANNUAL REVIEW OF HM ORDERS 02/13/202502/13, 01/23/2023, 07/17/2021 INFLUENZA VACCINE (Season Ended) 2025 11/24/2019, 11/17/2018 (Declined) BMP 08/26/2025 08/26/2024, 04/0 02/2023, 06/27/2021, Additional history exists COLONOSCOPY 02/13/2027 02/13/2022, 04/2 03/2022, 02/13/2022, Additional history exists COLORECTAL CANCER SCREENING 02/13/2027 DIABETES SCREENING 08/26/2027 08/26/2024, 1 10/26/2023, 01/23/2023, Additional history exists ADVANCE CARE PLANNING 03/14/2028 03/14/2023 , 01/23/2023, 10/03/2022, Additional history exists LIPID 08/26/2029 08/26/2024, 04/0 02/2023, 11/19/2017, Additional history exists DTAP/TDAP/TD IMMUNIZATION (3 - Td or Tdap) 10/03/2032 10/03/2022, 09/16/2012, 01/29/2002 RSV VACCINE (1 - 1-dose 75+ series) 2035 HIV SCREENING Completed 10/21/2008 HEPATITIS C SCREENING Completed 10/10/2016, 015 HPV IMMUNIZATION Aged Out No longer e ligible based on patient's age to complete this topic MENINGITIS IMMUNIZATION Aged Out No l onger eligible based on patient's age to complete this topic Procedures Procedure Name Priority Date/Time Associated Diagnosis Comments LIPID PROFILE Routine 08/26/2024 10:51 AM TRANSLATOR AND INTERPRETER Screening for hyperlipidemia BASIC METABOLIC PANEL Routine 08/26/2024 10:51 AM TRANSLATOR AND INTERPRETER Hypertension goal BP (blood pressure) < 140/90 COLONOSCOPY Routine 02/13/2022 8:48 AM CDT HEPATITIS C ANTIBODY Routine 10/10/2016 10:24 AM TRANSLATOR AND INTERPRETER Need for hepatitis C screening test from Last 3 Months or Most Recently Relevant to Health Maintenance Results * (ABNORMAL) Lipid Profile (08/26/2024 10:51 AM TRANSLATOR AND INTERPRETER) Cholesterol 197 <200 mg/dL 08/26/2024 10:53 PM TRANSLATOR AND INTERPRETER [facility] Triglycerides 111 <150 mg/dL 08/26/2024 10:53 PM TRANSLATOR AND INTERPRETER [facility] Direct Measure HDL 68 >=40 mg/dL 08/26/2024 10:53 PM TRANSLATOR AND INTERPRETER [facility] LDL Cholesterol Calculated 107(H) <100 mg/dL 08/26/2024 10:53 PM TRANSLATOR AND INTERPRETER [facility] Non HDL Cholesterol 129 <130 mg/dL 08/26/2024 10:53 PM TRANSLATOR AND INTERPRETER [facility] Patient Fasting > 8hrs? No 08/26/2024 10:53 PM TRANSLATOR AND INTERPRETER [facility] Blood BLOOD SPECIMEN / Unknown Venipuncture / Unknown 08/26/2024 10:51 AM TRANSLATOR AND INTERPRETER 08/26/2024 10:51 AM TRANSLATOR AND INTERPRETER Narrative [facility] - 08/26/2024 10:53 PM TRANSLATOR AND INTERPRETER Cholesterol Desirable: < 200 mg/dL Borderline High: 200 - 239 mg/dL High: >= 240 mg/dL Triglycerides Normal: < 150 mg/dL Borderline High: 150 - 199 mg/dL High: 200-499 mg/dL Very High: >= 500 mg/dL Direct Measure HDL Female: >= 50 mg/dL Male: >= 40 mg/dL LDL Cholesterol Desirable: < 100 mg/dL Above Desirable: 100 - 129 mg/dL Borderline High: 130 - 159 mg/dL High: 160 - 189 mg/dL Very High: >= 190 mg/dL Non HDL Cholesterol Desirable: < 130 mg/dL Above Desirable: 130 - 159 mg/dL Borderline High: 160 - 189 mg/dL High: 190 - 219 mg/dL Very High: >= 220 mg/dL Chetan Nu DO LAB - BLOOD ORDERABLES Final Re sult [facility] [address] [facility] [address] [place] [address] * BASIC METABOLIC PANEL (08/26/2024 10:51 AM TRANSLATOR AND INTERPRETER) Sodium 142 135 - 145 mmol/L 08/26/2024 10:53 PM TRANSLATOR AND INTERPRETER [facility] Potassium 4.5 3.4 - 5.3 mmol/L 08/26/2024 10:53 PM TRANSLATOR AND INTERPRETER [facility] Chloride 105 98 - 107 mmol/L 08/26/2024 10:53 PM TRANSLATOR AND INTERPRETER [facility] Carbon Dioxide (CO2) 27 22 - 29 mmol/L 08/26/2024 10:53 PM TRANSLATOR AND INTERPRETER [facility] Anion Gap 10 7 - 15 mmol/L 08/26/2024 10:53 PM TRANSLATOR AND INTERPRETER [facility] Urea Nitrogen 20.7 8.0 - 23.0 mg/dL 08/26/2024 10:53 PM TRANSLATOR AND INTERPRETER [facility] Creatinine 0.90 0.67 - 1.17 mg/dL 08/26/2024 10:53 PM TRANSLATOR AND INTERPRETER [facility] GFR Estimate >90 >60 mL/min/1.7 3m2 08/26/2024 10:53 PM TRANSLATOR AND INTERPRETER [facility] Comment:eGFR calculated usin g 2020 CKD-EPI equation. Calcium 9.4 8.8 - 10.4 mg/dL 08/26/2024 10:53 PM TRANSLATOR AND INTERPRETER [facility] Comment:Reference intervals for this test were updated on 05/05/2024 to reflect our healthy population more accurately. There may be differences in the flagging of prior results with similar values performed with this method. Those prior results can be interpreted in the context of the updated reference intervals. Glucose 87 70 - 99 mg/dL 08/26/2024 10:53 PM TRANSLATOR AND INTERPRETER [facility] Patient Fasting > 8hrs? No 08/26/2024 10:53 PM TRANSLATOR AND INTERPRETER [facility] Blood BLOOD SPECIMEN / Unknown Venipuncture / Unknown 08/26/2024 10:51 AM TRANSLATOR AND INTERPRETER 08/26/2024 10:51 AM TRANSLATOR AND INTERPRETER us Chetan Judge DO LAB - BLOOD ORDERABLES Final Re sult [facility] [address] [facility], [address] [phone] * COLONOSCOPY (02/13/2022 8:48 AM CDT) Pathologist [facility] COLONOSCOPY [facility] Patient Name: Adrian Duggan Procedure Date: 02/13/2022 8:48 AM Date of : 1960 Admit Type: Outpatient Age: 61 Gender: Male Attending MD: MATHEW CADET MD Total Sedation Time: 18_minutes continuous bedside 1:1 Instrument Name: 226 - Adult Colonoscope Procedure: Colonoscopy Indications: Screening for colorectal malignant neoplasm Providers: MATHEW CADET MD (Doctor) Referring MD: Medicines: Midazolam 2 mg IV, Fentanyl 100 micrograms IV Complications: No immediate complications. Procedure: Pre-Anesthesia Assessment: - Prior to the procedure, a History and Physical was performed, and patient medications and allergies were reviewed. The patient is competent. The risks and benefits of the procedure and the sedation options and risks were discussed with the patient. All questions were answered and informed consent was obtained. Patient identification and proposed procedure were verified by the physician in the pre-procedure area. Mental Status Examination: alert and oriented. Airway Examination: normal oropharyngeal airway and neck mobility. Respiratory Examination: clear to auscultation. CV Examination: normal. Prophylactic Antibiotics: The patient does not require prophylactic antibiotics. Prior Anticoagulants: The patient has taken no anticoagulant or antiplatelet agents. ASA Grade Assessment: II - A patient with mild systemic disease. After reviewing the risks and benefits, the patient was deemed in satisfactory condition to undergo the procedure. The anesthesia plan was to use moderate sedation / analgesia (conscious sedation). Immediately prior to administration of medications, the patient was re-assessed for adequacy to receive sedatives. The heart rate, respiratory rate, oxygen saturations, blood pressure, adequacy of pulmonary ventilation, and response to care were monitored throughout the procedure. The physical status of the patient was re-assessed after the procedure. After obtaining informed consent, the colonoscope was passed under direct vision. Throughout the procedure, the patient's blood pressure, pulse, and oxygen saturations were monitored continuously. The Olympus Adult Colonoscope, Model # [id number], [place] # 226, SN # [id number] was introduced through the anus and advanced to the cecum, identified by appendiceal orifice and ileocecal valve. The colonoscopy was performed without difficulty. The patient tolerated the procedure well. The quality of the bowel preparation was good. The ileocecal valve, appendiceal orifice, and rectum were photographed. Findings: The perianal and digital rectal examinations were normal. A 2 mm polyp was found in the sigmoid colon. The polyp was hyperplastic. The polyp was removed with a jumbo cold forceps. Resection and retrieval were complete. Verification of patient identification for the specimen was done. Estimated blood loss was minimal. A 6 mm polyp was found in the proximal transverse colon. The polyp was sessile. The polyp was removed with a cold snare. Resection and retrieval were complete. Verification of patient identification for the specimen was done. Estimated blood loss was minimal. To prevent bleeding after the polypectomy, one hemostatic clip was successfully placed. There was no bleeding at the end of the procedure. Multiple small and large-mouthed diverticula were found in the sigmoid colon, descending colon and transverse colon. The exam was otherwise without abnormality on direct and retroflexion views. Impression: - One 2 mm polyp in the sigmoid colon, removed with a jumbo cold forceps. Resected and retrieved. - One 6 mm polyp in the proximal transverse colon, removed with a cold snare. Resected and retrieved. Clip was placed. - Diverticulosis in the sigmoid colon, in the descending colon and in the transverse colon. - The examination was otherwise normal on direct and retroflexion views. Recommendation: - No aspirin, ibuprofen, naproxen, or other non-steroidal anti-inflammatory drugs for 5 days after polyp removal. - Await pathology results. - Repeat colonoscopy date to be determined after pending pathology results are reviewed for surveillance based on pathology results. Procedure Code(s): --- Professional --- 67572, Colonoscopy, flexible; with removal of tumor(s), polyp(s), or other lesion(s) by snare technique 94724, 59, Colonoscopy, flexible; with biopsy, single or multiple Diagnosis Code(s): --- Professional --- K63.5, Polyp of colon CPT copyright 2020 [employer]. All rights reserved. The codes documented in this report are preliminary and upon medical record coder review may be revised to meet current compliance requirements. Electronically signed by Mathew Cadet MD __ MATHEW CADET MD 02/13/2022 9:20:54 AM I was physically present for the entire viewing portion of the exam. MATHEW CADET MD Number of Addenda: 0 Note Initiated On: 02/13/2022 8:48 AM Procedure Date: 02/13/2022 8:48:32 AM Scope Withdrawal Time: 0 hours 6 minutes 28 seconds Total Procedure Duration: 0 hours 16 minutes 14 seconds Estimated Blood Loss: Scope In: 8:59:38 AM Scope Out: 9:15:52 AM RADIOLOGY RESULTS 02/13/2022 8:48 AM CDT us Mathew Cadet MD PROCEDURES Final Result RADIOLOGY RESULTS * Hepatitis C antibody (10/10/2016 10:24 AM TRANSLATOR AND INTERPRETER) Hepatitis C Antibody Nonreactive Assay performance characteristics have not been established for newborns, infants, and children NR [facility] Blood specimen (specimen) 10/10/2016 10:24 AM TRANSLATOR AND INTERPRETER 10/10/2016 10:25 AM TRANSLATOR AND INTERPRETER us Walter Ibarra MD LAB - BLOOD ORDERABLES Final Res ult Performing Organization Address City/[facility] Co de Phone Number [facility] [address] [place] [address] from Last 3 Months or Most Recently Relevant to Health Maintenance Insurance [employer] CHOICE [employer] Care Teams It Sales Representative Relationship Specialty [place] [address] [place] [address] PCP - General Family Medicine 06/07/23 [place] [address] [place] [address] Assigned PCP 06/29/23
--- NOTE | 2025-02-20 17:09 | ED_ITS ---
HPI - Chest Pain General Chief Complaint: Chest Pain Stated Complaint: Heart Attack Time Seen by Provider: 02/20/25 16:41 History of Present Illness HPI narrative: This 64-year-old male comes in reporting chest pain that began upon awakening this morning at 8 8:00 a.m.. He states that it has been constant since then. He states that the pain is worse with taking a deep breath. He does not report any nausea, vomiting, lightheadedness, shortness of breath, or diaphoresis. Prior to this he has not had any exercise intolerance but states that he does not normally exercise. He reports a remote history of some amount of smoking but nothing currently or recently. He states that his father was a smoker and had a heart attack and in his 50s. He does not have any other cardiac risk factors except for hypertension for which she takes a beta-tee. Related Data Home Medications ?Medication ?Instructions ?Recorded ?Confirmed atenolol 25 mg tablet 25 mg PO BID 02/20/25 02/20/25 escitalopram oxalate 20 mg tablet 20 mg PO DAILY 02/20/25 02/20/25 Allergies Allergy/AdvReac Type Severity Reaction Status Date / Time No Known Drug Allergies Allergy Verified 02/20/25 16:49 Review of Systems Status of ROS Reports: 10 or more systems reviewed and unremarkable except as noted in History and below Narrative Constitutional: No fevers, no weight gain or loss. Eyes: No discharge. No vision changes. HENT: No congestion, no sore throat, no ear pain. Cardiovascular: No palpitations. Respiratory: No shortness of breath, no wheezes, no cough. Gastrointestinal: No abdominal pain, no vomiting, no diarrhea. Genitourinary: No dysuria, no hematuria. Musculoskeletal: Normal range of motion. Skin: No rashes, no pruritis. Neurological: No dizziness, weakness, sensory change, speech change. Endo/Heme/Allergies: No bruising or bleeding. No polydipsia. Pysch: no suicidality, no anxiety, no insomnia. All other systems reviewed and are negative. Exam Narrative Exam Narrative: Constitutional: Well-developed, well-nourished, no acute distress. HEENT: Normocephalic, atraumatic. Neck: Normal range of motion. Nontender. Supple. Heart: Regular. No murmurs. Normal rate. Intact distal pulses. Lungs: Clear to auscultation. Chest discomfort is distinctly reproducible when taking a deep breath. No wheezes, rhonchi, or rales. Abdomen: Normal bowel sounds. Nontender. No rebound tenderness. Genitalia: Deferred. Back: No midline tenderness. Normal range of motion. Extremities: Normal range of motion. No injury. Skin: Intact. No rash. Warm. No erythema or pallor. Neurologic: No altered sensation. No weakness. Alert and oriented. Psychiatric: No suicidality. No anxiety or depression. No insomnia. Nursing notes and vitals signs are reviewed. Const Vital Signs, click to edit/add: Vital Signs - 24 hr 02/20/25 16:46 02/20/25 17:19 02/20/25 17:30 Temperature 99.2 F Pulse Rate 76 76 Pulse Rate [Pulse Oximeter] 82 Respiratory Rate 16 23 25 H Blood Pressure [Right Upper Arm] 160/90 H Pulse Oximetry 94 95 96 Oxygen Delivery Method Room Air High Flow Nasal Cannula Course Vital Signs Vital signs: Initial Vital Signs Respiratory Effort Normal, Spontaneous, Non-Labored 02/20/25 16:40 Respiratory Depth Normal 02/20/25 16:40 Respiratory Pattern Normal 02/20/25 16:40 Vital Signs Temperature 99.2 F 02/20/25 16:46 Pulse Rate 82 02/20/25 16:46 Respiratory Rate 16 02/20/25 16:46 Blood Pressure 160/90 H 02/20/25 16:46 Pulse Oximetry 94 02/20/25 16:46 Oxygen Delivery Method Room Air, High Flow Nasal Cannula 02/20/25 16:46 Temperature 99.2 F 02/20/25 16:46 Pulse Rate 76 02/20/25 17:30 Respiratory Rate 25 H 02/20/25 17:30 Blood Pressure 160/90 H 02/20/25 16:46 Pulse Oximetry 96 02/20/25 17:30 Oxygen Delivery Method Room Air, High Flow Nasal Cannula 02/20/25 16:46 Medications Administered Medications: Discontinued Medications Generic Name Dose Route Start Last Admin Trade Name Freq PRN Reason Stop Dose Admin Lidocaine/Aluminum/Magnesium/Simeth 30 ml 02/20/25 17:22 02/20/25 17:39 Gi Cocktail (Visc Lido/Antacid) 30 Ml PO 02/20/25 17:23 30 ml ONCE ONE Administration MDM - Chest Pain MDM Narrative Medical decision making narrative: This patient reports chest pain since this morning as described above. His pain is reproducible suggesting chest wall type pain. He states that he does have some chronic back pain which may be radiating around to the front. He also wondered if he had some reflux symptoms and requested a GI cocktail. This was administered and he states that it seems to help him feel better. Lab results and EKG all returned with normal findings. He is okay to be discharged home. He will use [id number] medicines including medications like omeprazole as needed and directed. Lab Data Labs: Lab Results 02/20/25 02/20/25 Range/Units 17:00 17:07 WBC 7.20 (4.50-11.00) K/uL RBC 4.56 (4.30-5.90) m/uL Hgb 14.3 (13.5-17.5) gm/dL Hct 42.8 (37.0-53.0) % MCV 94 (80-100) fL MCH 31 (26-34) pg MCHC 33 (32-36) gm/dL RDW Coeff of Addis 12.2 (11.5-15.5) % Plt Count 160 (140-440) K/uL Neut % (Auto) 71.4 (42.0-72.0) % Lymph % (Auto) 15.6 L (20-44) % Bradley % (Auto) 11.3 H (0.0-11.0) % Eos % (Auto) 1.3 (0.0-7.0) % Baso % (Auto) 0.3 (0.0-3.0) % Neut # (Auto) 5.15 (1.7-7.0) K/uL Lymph # (Auto) 1.10 (0.90-2.90) K/uL Bradley # (Auto) 0.80 (0.00-0.90) K/UL Eos # (Auto) 0.09 (0.00-0.50) K/uL Baso # (Auto) 0.02 (0.00-0.30) K/uL Abs Immat Gran (auto) 0.01 (0.00-0.30) K/uL Imm/Tot Granulo (auto) 0.1 % Sodium 140 (135-149) mmol/L Potassium 3.9 (3.6-5.1) mmol/L Chloride 104 (96-114) mmol/L Carbon Dioxide 28 (20-32) mmol/L Anion Gap 8 (7-15) mEq/L BUN 16 (7-30) mg/dL Creatinine 0.7 (0.5-1.5) mg/dL Estimated Creat Clear 77.06 Estimated GFR 103 ml/min Glucose 119 H (60-115) mg/dL Calcium 9.5 (8.4-10.6) mg/dL POC Troponin I 0.00 L (0.01-0.04) ng/ml ECG Data Attestation: I personally reviewed and interpreted this ECG as follows: Interpretation: Normal sinus rhythm. Rate is 79 beats per minute. There are no ST or T-wave abnormalities. Discharge Plan Discharge Clinical Impression: Acute chest wall pain Patient Disposition: Home, Self-Care Condition: Stable Additional Instructions: Use a proton pump inhibitor such as omeprazole or lansoprazole as needed and directed. Use other [id number] medicines also for symptomatic relief. Activity as tolerated. Follow up with MD return if worsening. Prescriptions: No Action atenolol 25 mg tablet 25 mg PO BID escitalopram oxalate 20 mg tablet 20 mg PO DAILY Follow Up/Referrals: Chetan Judge DO [Primary Care Provider] - Stand Alone Forms: [facility] Info Instructions
[2025-02-20 17:26] LABS: Basophils Absolute Auto 0.02 K/uL (0.00-0.30); Basophils Percent Auto 0.3 % (0.0-3.0); Eosinophils Absolute Auto 0.09 K/uL (0.00-0.50); Eosinophils Percent Auto 1.3 % (0.0-7.0); Hematocrit 42.8 % (37.0-53.0); Hemoglobin* 14.3 gm/dL (13.5-17.5); Immature Granulocytes Abs Auto 0.01 K/uL (0.00-0.30); Immature Granulocytes Pct Auto 0.1 %; Lymphocytes Percent Auto 15.6 % (20-44); Mean Corpuscular HGB Conc 33 gm/dL (32-36); Mean Corpuscular Hemoglobin 31 pg (26-34); Mean Corpuscular Volume 94 fL (80-100); Monocytes Percent Auto 11.3 % (0.0-11.0); Neutrophils Absolute Auto 5.15 K/uL (1.7-7.0); Neutrophils Percent Auto 71.4 % (42.0-72.0); Platelet Count* 160 K/uL (140-440); RDW Coefficient of Variation % 12.2 % (11.5-15.5); Red Blood Count 4.56 m/uL (4.30-5.90)
[2025-02-20 17:28] LABS: Slide Review Reflex No
[2025-02-20] MEDS: GI COCKTAIL (VISC LIDO/ANTACID) 30 ML PO (17:39)
[2025-02-20 17:45] LABS: Chloride* 104 mmol/L (96-114); Potassium* 3.9 mmol/L (3.6-5.1); Sodium* 140 mmol/L (135-149)
[2025-02-20 17:48] LABS: Anion Gap 8 mEq/L (7-15); Blood Urea Nitrogen* 16 mg/dL (7-30); Calcium* 9.5 mg/dL (8.4-10.6); Carbon Dioxide* 28 mmol/L (20-32); Creatinine* 0.7 mg/dL (0.5-1.5); Est. Creatinine Clearance* 77.06; Estimated Glomerular Filt Rate 103 ml/min; Glucose* 119 mg/dL (60-115)
== END 2025-02-20 18:13 | disposition home or self-care (01) ==
PROVIDERS: Emergency Provider Emergency Medicine Emergency Medical Services; PCP Family Medicine
DX: R07.89 Other chest pain (principal)
CPT/HCPCS: 36415; 80048; 84484; 85025; 93005; 99284; A9270